=== PATIENT | male | born 1960 | race Caucasian/White ===

== ENCOUNTER 2018-09-27 16:20 | Inpatient (IN) | payer SELFPAY ==
[~2018-09-27] VITALS: Ht 185.4 cm; Wt 123.5 kg
[~2018-09-27 16:20] MED LIST: ACLI400A2 IH; FLUT1DIS5 IH; LOSA100T14 PO; METO-247 PO; SPIR50TA4 PO
[2018-09-27 17:08] VITALS: BP 133/73
[2018-09-27] MEDS: NICOTINE 21MG PATCH. TD SCH (17:30)
[2018-09-27] MEDS ORDERED: FUROSEMIDE 40 MG/4 ML VIAL. IVP ONE (17:30)
[2018-09-27] MEDS ORDERED: ALBUMIN HUMAN 25% 50 ML IV ONE (17:30)
[2018-09-27] MEDS ORDERED: METO-247 PO (18:42)
[2018-09-27] MEDS ORDERED: GABA300C18 PO (18:42)
[2018-09-27] MEDS ORDERED: PIPE3.377 IV (18:42)
[2018-09-27] MEDS ORDERED: FOLI1TAB16 PO (18:42)
[2018-09-27] MEDS ORDERED: METH40VI IJ (18:42)
[2018-09-27] MEDS ORDERED: METO2.5T PO (18:42)
[2018-09-27] MEDS ORDERED: ALBU2.5V14 NEB (18:42)
[2018-09-27] MEDS ORDERED: MULT1TAB52 PO (18:42)
[2018-09-27] MEDS ORDERED: LOSA25TA54 PO (18:42)
[2018-09-27] MEDS ORDERED: POTA20TA82 PO (18:42)
[2018-09-27] MEDS ORDERED: IPRA3AMP29 NEB (18:47)
[2018-09-27] MEDS ORDERED: BUDE0.5A NEB (18:47)
[2018-09-27 19:05] VITALS: BP 110/62
[2018-09-27] MEDS: BUDESONIDE 0.5 MG/2 ML NEBU. NEB SCH (20:06)
[2018-09-27] MEDS: ALBUTEROL SULFATE 2.5 MG/3 ML NEBU. NEB SCH (20:06)
[2018-09-27] MEDS ORDERED: NON FORMULARY ITEM (Fluticasone/Salmeterol (Advair 500-50 Diskus) 1 INH) IH SCH (21:00)
[2018-09-27] MEDS: GABAPENTIN 300 MG CAPSULE. PO SCH (21:30)
[2018-09-27] MEDS: POTASSIUM CHLORIDE 20 MEQ TABLET.ER. PO SCH (21:31)
[2018-09-27] MEDS: methylPREDNISolone SOD SUCC PF 40 MG/ML VIAL. IV SCH (21:31)
[2018-09-27] MEDS: VANCOMYCIN PER PHARMACY MC PRN ×2 (21:54→22:00)
[2018-09-27] MEDS ORDERED: PIPERACILLIN/TAZOBACTAM 3.375 GM in IV NORMAL SALINE 50ML 50 ML IV SCH (22:00)
[2018-09-27] MEDS ORDERED: [UNRECOGNIZED DRUG - OTHER] IV SCH (22:00)
[2018-09-27] MEDS ORDERED: PIPERACILLIN TAZO DEXTROSE ISO IV SCH (22:00)
[2018-09-27 23:10] VITALS: BP 129/79
[2018-09-28] VITALS (7 sets, daily range): BP systolic 114–130; BP diastolic 68–83
[2018-09-28] MEDS ORDERED: NON FORMULARY ITEM (Albuterol Sulfate (Albuterol Sulfate Conc Neb Soln) 1 VIAL) NEB SCH
[2018-09-28] MEDS: VANCOMYCIN 2 GM in IV NORMAL SALINE 500ML BAG 500 ML IV SCH ×2 (01:00→12:58)
[2018-09-28 05:27] LABS: BASO % 0 % (0-3); EOS % 0 % (0-3); HEMATOCRIT 61.8 % (39.0-53.0); HEMOGLOBIN 19.9 g/dL (13.0-17.5); LYMPH # 0.6 x10^3/uL (1.0-4.8); LYMPH % 6 % (24-48); MEAN CORPUSCULAR HEMOGLOBIN 29 pg (25-35); MEAN CORPUSCULAR HGB CONC 32 g/dL (31-37); MEAN CORPUSCULAR VOLUME 91 fL (79-100); MONO # 0.5 x10^3/uL (0.0-1.1); MONO % 5 % (0-9); NEUT # 9.1 x10^3uL (1.8-7.7); NEUT % 89 % (31-73); PLATELET COUNT 117 x10^3/uL (140-400); RED BLOOD COUNT 6.77 x10^6/uL (4.30-5.70); RED CELL DISTRIBUTION WIDTH 16.7 % (11.5-14.5); WHITE BLOOD COUNT 10.2 x10^3/uL (4.0-11.0)
[2018-09-28] MEDS: PIPERACILLIN/TAZOBACTAM 3.375 GM in IV NORMAL SALINE 50ML 50 ML IV SCH ×3 (05:49→17:20)
[2018-09-28 05:50] LABS: CALCIUM 9.3 mg/dL (8.5-10.1); CREATININE 1.1 mg/dL (0.7-1.3)
[2018-09-28] MEDS: ALBUTEROL SULFATE 2.5 MG/3 ML NEBU. NEB SCH ×5 (06:56→20:30)
[2018-09-28] MEDS: BUDESONIDE 0.5 MG/2 ML NEBU. NEB SCH ×2 (06:57→20:30)
[2018-09-28] MEDS ORDERED: METOPROLOL SUCC 24HR ER 100 MG TAB.ER.24H. PO SCH (09:00)
[2018-09-28] MEDS ORDERED: LOSARTAN POTASSIUM 50 MG TABLET. PO SCH (09:00)
[2018-09-28 09:01] LABS: % LYMPHS 3 % (24-48); % MONOS 5 % (0-10); % SEGS 92 % (35-66)
[2018-09-28 09:02] LABS: ANISOCYTOSIS SLIGHT; PLT ESTIMATE DECREASED (ADEQUATE)
--- NOTE | 2018-09-28 09:39 | HP ---
ADMIT DATE: 09/27/2018 HISTORY OF PRESENT ILLNESS: The patient is a 58-year-old male patient who was transferred from [facility] where he was originally admitted on 09/22/2018 with increasing pain and swelling of both lower extremities and weight gain. He stated that he gained about 60 pounds over the last year and about 7 pounds over the last week prior to admission. He also complained of shortness of breath, but denied any chest pain. Did complain of orthopnea, paroxysmal nocturnal dyspnea. Initial blood gases showed that he was in acute hypoxic hypercapnic respiratory failure. His pH was 7.31, pCO2 of 80, pO2 of 65, bicarbonate 41, oxygen saturation was 89%. He refused to go on BiPAP machine. We did start him on IV Lasix, and we added also human albumin and metolazone. On the night before the transfer to [facility], the patient desaturated with an oxygen saturation down to 82%. We did put him back on BiPAP machine. He initially came with abnormal kidney function that has actually improved with increase in the dose of Lasix. In fact, his creatinine was 1.6 on arrival to [facility] that has improved to 1.1 yesterday. He has worsening hypoxemia. We did a CT angiography of the chest, which showed no evidence of pulmonary emboli; however, he has bilateral lung infiltrate. He has finally agreed to be transferred to [facility]. We did transfer him to consult the Cardiology as well as the menu planner. He has severe secondary erythrocytosis, his hemoglobin and hematocrit almost 20 and 60. I wonder whether phlebotomy is something that needs to be considered in this patient. PAST MEDICAL HISTORY: Significant for hypertension, chronic obstructive pulmonary disease, morbid obesity, obstructive sleep apnea, for which he is on CPAP at home. PAST SURGICAL HISTORY: Significant for tonsillectomy, excision of melanoma from his left axillary area and arthroscopic knee surgery, both sides. ALLERGIES: He has no known drug allergies. MEDICATIONS: He was transferred to this facility to continue on following medications: Zosyn 3.375 grams IV q.8 hourly, ipratropium bromide, albuterol sulfate by nebulizer 4 times a day, albuterol sulfate by nebulizer every 6 hours, metoprolol succinate 100 mg once a day, losartan potassium 100 mg once a day, spironolactone 50 mg once a day, gabapentin 300 mg 3 times a day, potassium chloride 20 mEq 3 times a day, metolazone 2.5 mg daily. He is on Advair Diskus 500/50 one inhalation twice a day, methylprednisolone 40 mg IV q.12 hourly, folic acid 1 mg once a day, multivitamin 1 tablet once a day. Should also be on Lasix 40 mg IV 3 times a day, human albumin 12.5 mg IV 3 times a day and vancomycin as per pharmacy recommendation. He is also on nicotine patch 21 mg topically daily. FAMILY HISTORY: He has one brother younger and seemingly healthy. His father at the age of 48 because of cerebral aneurysm. Apparently has rheumatic fever, requiring valve replacement. His mother is still alive at age of 77 and survived colon cancer x 2. SOCIAL HISTORY: He is , has 1 son. He smokes 1 pack per day. He drinks some form of hard liquor daily and also drinks between 1-18 beers a day. 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 REVIEW OF SYSTEMS: The patient denied any blurring of vision, cataract, glaucoma or macular degeneration. Denied any earache, tinnitus or sensorineural deafness. Denied any nosebleeds, stuffy nose or postnasal drip. Denied any sore throat, sore tongue, toothache, hoarseness of voice or difficulty swallowing. Denied any nausea, vomiting, diarrhea or constipation. Denied any hematemesis, melena or hematochezia. Denied any dysuria, frequency or hematuria. Did complain of hematuria when he was in [facility] after we started him on Lovenox; however, we did a CT scan of the abdomen, did not show any renal stones or renal malignancy. He denied any chest pain. Did complain of shortness of breath, orthopnea, paroxysmal nocturnal dyspnea. PHYSICAL EXAMINATION: GENERAL: When I examined him this morning, he was actually resting slightly propped up in bed, in no apparent respiratory distress. He was plethoric, and there is no jaundice, cyanosis or thyromegaly. No jugular venous distention. His bilateral lower limb edema has much improved, although by no means completely resolved. VITAL SIGNS: His heart rate was 85, blood pressure 117/77, temperature was 97.9, respiratory rate was 20 and oxygen saturation was 89% on 4 liters of oxygen. HEAD, EYES, EARS, NOSE AND THROAT: Showed normocephalic, atraumatic. NECK: Supple. HEART: Showed normal first and second heart sounds. No gallop, rub or murmur. CHEST: Clear to auscultation. No crepitation or rhonchi. ABDOMEN: Distended, soft, nontender, with a periumbilical hernia that is easily reducible. There is no guarding or rigidity. No organomegaly. All hernial orifice intact. Bowel sounds normal. NEUROLOGIC: He was sleepy, but arousable. All cranial nerves intact. EXTREMITIES: He moves extremities without difficulty, ambulates without assistance or assistive devices. LABORATORY DATA: Showed a white cell count of 10,200, hemoglobin 19.9, hematocrit 61.8, MCV 91 and platelet count of 117,000. His chemistry showed a serum sodium 139, potassium 4, chloride 91, bicarbonate 44, anion gap of 4, BUN 29, creatinine 1.1, estimated GFR was 69 mL per minute, his glucose 117, calcium was 9.3. IMPRESSION: In summary 1. This is a 58-year-old male patient who was admitted originally to [facility] with azpsu-uf-bxddxog hypoxic hypercapnic respiratory failure. 2. Acute on chronic systolic and diastolic congestive heart failure. 3. Morbid obesity with obstructive sleep apnea. 4. Hypertension. 5. Thrombocytopenia. 6. Alcohol and tobacco abuse. PLAN: My plan is to continue with nebulized albuterol and Atrovent. Continue with IV Solu-Medrol. Continue with Lasix and human albumin as well as metolazone. I would consult the menu planner as well as the financial reporting director to assist and optimize his medical management. LARISA GROSS MD DR: ZAID/severo JOB#: [id number] / [id number]
[2018-09-28] MEDS: LOSARTAN POTASSIUM 25 MG TABLET. PO SCH (09:53)
[2018-09-28] MEDS: POTASSIUM CHLORIDE 20 MEQ TABLET.ER. PO SCH ×3 (09:53→17:19)
[2018-09-28] MEDS: METOPROLOL SUCC 24HR ER 100 MG TAB.ER.24H. PO SCH (09:53)
[2018-09-28] MEDS: GABAPENTIN 300 MG CAPSULE. PO SCH ×3 (09:53→21:29)
[2018-09-28] MEDS: MULTIVITAMIN with MINERAL TABLET. PO SCH (09:53)
[2018-09-28] MEDS: metOLazone 2.5 MG TABLET PO SCH (09:54)
[2018-09-28] MEDS: FOLIC ACID 1 MG TABLET. PO SCH (09:54)
[2018-09-28] MEDS: methylPREDNISolone SOD SUCC PF 40 MG/ML VIAL. IV SCH ×2 (09:54→21:29)
[2018-09-28] MEDS: SPIRONOLACTONE 25 MG TABLET PO SCH (09:54)
[2018-09-28] MEDS: ALBUMIN HUMAN 25% 50 ML IV SCH ×3 (09:55→21:29)
[2018-09-28] MEDS: NICOTINE 21MG PATCH. TD SCH (09:55)
[2018-09-28] MEDS: FUROSEMIDE 40 MG/4 ML VIAL. IVP SCH ×4 (09:55→22:51)
--- NOTE | 2018-09-28 11:05 | PDOC ---
JANELLE COHEN OPENING MACHINE CLEANER 09/28/18 1105: CARDIO Progress Notes Date and Time Date of Service 09/28/2018 Time of Evaluation 1040 Subjective Subjective: No Chest Pain, No Palpitations, Other (SOA better) Vitals Vitals Vital Signs Date Time Temp Pulse Resp B/P (MAP) Pulse Ox O2 Delivery O2 Flow Rate FiO2 09/28/18 09:53 85 117/77 09/28/18 07:40 Nasal Cannula 4.0 09/28/18 07:00 97.9 20 89 97.9 Weight Weight [ ] Input and Output Intake and Output Intake and Output 09/28/18 07:00 Intake Total 1150 ml Output Total 3300 ml Balance -2150 ml Intake Oral 550 ml IV Total 600 ml Output Urine Total 3300 ml Laboratory Labs Laboratory Tests Test 09/28/18 04:20 White Blood Count 10.2 x10^3/uL (4.0-11.0) Red Blood Count 6.77 x10^6/uL (4.30-5.70) Hemoglobin 19.9 g/dL (13.0-17.5) Hematocrit 61.8 % (39.0-53.0) Mean Corpuscular Volume 91 fL (79-100) Mean Corpuscular Hemoglobin 29 pg (25-35) Mean Corpuscular Hemoglobin Concent 32 g/dL (31-37) Red Cell Distribution Width 16.7 % (11.5-14.5) Platelet Count 117 x10^3/uL (140-400) Neutrophils (%) (Auto) 89 % (31-73) Lymphocytes (%) (Auto) 6 % (24-48) Monocytes (%) (Auto) 5 % (0-9) Eosinophils (%) (Auto) 0 % (0-3) Basophils (%) (Auto) 0 % (0-3) Neutrophils # (Auto) 9.1 x10^3uL (1.8-7.7) Lymphocytes # (Auto) 0.6 x10^3/uL (1.0-4.8) Monocytes # (Auto) 0.5 x10^3/uL (0.0-1.1) Eosinophils # (Auto) 0.0 x10^3/uL (0.0-0.7) Basophils # (Auto) 0.0 x10^3/uL (0.0-0.2) Segmented Neutrophils % 92 % (35-66) Lymphocytes % 3 % (24-48) Monocytes % 5 % (0-10) Platelet Estimate Decreased (ADEQUATE) Large Platelets Few Anisocytosis Slight Sodium Level 139 mmol/L (136-145) Potassium Level 4.0 mmol/L (3.5-5.1) Chloride Level 91 mmol/L (98-107) Carbon Dioxide Level 44 mmol/L (21-32) Anion Gap 4 (6-14) Blood Urea Nitrogen 29 mg/dL (8-26) Creatinine 1.1 mg/dL (0.7-1.3) Estimated GFR (Cockcroft-Gault) 69.0 Glucose Level 117 mg/dL (70-99) Calcium Level 9.3 mg/dL (8.5-10.1) Physical Exam HEENT: Neck Supple W Full Motion Chest: Symmetric LUNGS: Other (diminished with upper wheeze) Heart: S1S2, RRR (SR ) Abdomen: Soft N/T, Other (obese) Extremities: No Calf Tenderness, Other (3-4+ bilateral LE pitting edema) Neurology: alert, oriented, follow commands Assessment Assessment 1. Acute on chronic respiratory failure with associated with AECOPD and LORETO with possible pneumonia 2. Acute on chronic diastolic heart failure: due to above 2. Probable venous insufficiency 3. ETOH abuse with possible liver disease vs hepatic congestion: 4-5 beers and chased with hard liquor 4. tobaccoism 5. HTN: controlled 6. Morbid obesity - encourage weight reduction 7. Polycythemia/thrombocytopenia/mild coagulopathy/splenomegaly Recommendations 1. Came from [place] seen by cardiology over there. Consult Pulmonary 2. Bipap PRN 3. Continue with lasix therapy. 4. ETOH and smoking cessation. Lifestyle modification 5. Consider outpatient venous reflux study and compression hose, avoidance of sodium and elevate feet when possible 6. Continue current BP regimen. May hold metoprolol if wheezy. Supportive care. <Conclusion> TTE The Left Ventricle is borderline dilated. The left ventricular systolic function is normal and the ejection fraction is within normal range. The Ejection Fraction is 55-60%. There is mild concentric left ventricular hypertrophy. There is no significant aortic valvular stenosis. Doppler and Color Flow revealed no significant aortic regurgitation. Doppler and Color Flow revealed trace mitral valve regurgitation. Doppler and Color Flow revealed trace to mild tricuspid valve regurgitation. DATE: 09/25/18 1132 IMPRESSION: CTA 1. Negative for pulmonary embolism. 2. Lower lobe infiltrates or pneumonia bilaterally. DATE: 09/27/18 1056 PRITI PRADHAN MD 09/28/182: CARDIO Progress Notes Assessment Assessment Patient seen and examined. Agree with REAL ESTATE CONSULTANT's assessment and plan. Pulm team consulted for acute COPD exacerbation Continue diuresis for acute on chronic diastolic HF 2D echo showed normal LVF Edema/discoloration c/w venous insufficiency - plan outpatient venous reflux study Thank you for your consultation JANELLE COHEN APRN Sep 28, 2018 11:05 PRITI PRADHAN MD Sep 28, 2018 21:32
[2018-09-28] MEDS: VANCOMYCIN PER PHARMACY MC PRN (13:38)
--- NOTE | 2018-09-28 15:04 | PDOC ---
PULMONARY PROGRESS NOTES Vitals Vital Signs Date Time Temp Pulse Resp B/P (MAP) Pulse Ox O2 Delivery O2 Flow Rate FiO2 09/28/18 12:03 Nasal Cannula 4.0 09/28/18 11:00 98.2 84 20 124/70 (88) 88 98.2 Labs Laboratory Tests Test 09/28/18 04:20 White Blood Count 10.2 x10^3/uL (4.0-11.0) Red Blood Count 6.77 x10^6/uL (4.30-5.70) Hemoglobin 19.9 g/dL (13.0-17.5) Hematocrit 61.8 % (39.0-53.0) Mean Corpuscular Volume 91 fL (79-100) Mean Corpuscular Hemoglobin 29 pg (25-35) Mean Corpuscular Hemoglobin Concent 32 g/dL (31-37) Red Cell Distribution Width 16.7 % (11.5-14.5) Platelet Count 117 x10^3/uL (140-400) Neutrophils (%) (Auto) 89 % (31-73) Lymphocytes (%) (Auto) 6 % (24-48) Monocytes (%) (Auto) 5 % (0-9) Eosinophils (%) (Auto) 0 % (0-3) Basophils (%) (Auto) 0 % (0-3) Neutrophils # (Auto) 9.1 x10^3uL (1.8-7.7) Lymphocytes # (Auto) 0.6 x10^3/uL (1.0-4.8) Monocytes # (Auto) 0.5 x10^3/uL (0.0-1.1) Eosinophils # (Auto) 0.0 x10^3/uL (0.0-0.7) Basophils # (Auto) 0.0 x10^3/uL (0.0-0.2) Segmented Neutrophils % 92 % (35-66) Lymphocytes % 3 % (24-48) Monocytes % 5 % (0-10) Platelet Estimate Decreased (ADEQUATE) Large Platelets Few Anisocytosis Slight Sodium Level 139 mmol/L (136-145) Potassium Level 4.0 mmol/L (3.5-5.1) Chloride Level 91 mmol/L (98-107) Carbon Dioxide Level 44 mmol/L (21-32) Anion Gap 4 (6-14) Blood Urea Nitrogen 29 mg/dL (8-26) Creatinine 1.1 mg/dL (0.7-1.3) Estimated GFR (Cockcroft-Gault) 69.0 Glucose Level 117 mg/dL (70-99) Calcium Level 9.3 mg/dL (8.5-10.1) Laboratory Tests Test 09/28/18 04:20 White Blood Count 10.2 x10^3/uL (4.0-11.0) Red Blood Count 6.77 x10^6/uL (4.30-5.70) Hemoglobin 19.9 g/dL (13.0-17.5) Hematocrit 61.8 % (39.0-53.0) Mean Corpuscular Volume 91 fL (79-100) Mean Corpuscular Hemoglobin 29 pg (25-35) Mean Corpuscular Hemoglobin Concent 32 g/dL (31-37) Red Cell Distribution Width 16.7 % (11.5-14.5) Platelet Count 117 x10^3/uL (140-400) Neutrophils (%) (Auto) 89 % (31-73) Lymphocytes (%) (Auto) 6 % (24-48) Monocytes (%) (Auto) 5 % (0-9) Eosinophils (%) (Auto) 0 % (0-3) Basophils (%) (Auto) 0 % (0-3) Neutrophils # (Auto) 9.1 x10^3uL (1.8-7.7) Lymphocytes # (Auto) 0.6 x10^3/uL (1.0-4.8) Monocytes # (Auto) 0.5 x10^3/uL (0.0-1.1) Eosinophils # (Auto) 0.0 x10^3/uL (0.0-0.7) Basophils # (Auto) 0.0 x10^3/uL (0.0-0.2) Segmented Neutrophils % 92 % (35-66) Lymphocytes % 3 % (24-48) Monocytes % 5 % (0-10) Platelet Estimate Decreased (ADEQUATE) Large Platelets Few Anisocytosis Slight Sodium Level 139 mmol/L (136-145) Potassium Level 4.0 mmol/L (3.5-5.1) Chloride Level 91 mmol/L (98-107) Carbon Dioxide Level 44 mmol/L (21-32) Anion Gap 4 (6-14) Blood Urea Nitrogen 29 mg/dL (8-26) Creatinine 1.1 mg/dL (0.7-1.3) Estimated GFR (Cockcroft-Gault) 69.0 Glucose Level 117 mg/dL (70-99) Calcium Level 9.3 mg/dL (8.5-10.1) Medications Active Scripts Medications Dose Route/Sig Max Daily Dose Days Date Category Duoneb 0.5-3(2.5) Mg/3 Ml (Albuterol/Ipratropium) 3 Ml Ampul.neb 3 Ml NEB QID 09/27/18 Reported Budesonide 0.5 Mg/2 Ml Ampul.neb 1 Vial NEB BID 09/27/18 Reported Solu-Medrol 40 Mg Vial (Methylprednisolone Sod Succ/Pf) 40 Mg/1 Ml Vial 40 Mg IJ Q12HR 09/27/18 Reported Metolazone 2.5 Mg Tablet 2.5 Mg PO DAILY 09/27/18 Reported Potassium Chloride 20 Meq Tablet.er 20 Meq PO TID 09/27/18 Reported Zosyn 3.375 Gm Pre Mix-Bag (Stujxischmdk-Kdln-Giloxhsk,Iso) 3.375 Gm/50 Ml Froz.piggy 3.375 Gm IV Q8HRS 09/27/18 Reported Multivitamins (Multivitamin) 1 Each Tablet 1 Tab PO DAILY 09/27/18 Reported Metoprolol Succinate ( Xl ) (Metoprolol Succinate) 100 Mg Tab.er.24h 1 Tab PO DAILY 09/27/18 Reported Losartan Potassium (Losartan Potassium) 25 Mg Tablet 25 Mg PO DAILY 09/27/18 Reported Gabapentin (Gabapentin) 300 Mg Capsule 300 Mg PO TID 09/27/18 Reported Folic Acid 1 Mg Tablet 1 Tab PO DAILY 09/27/18 Reported Albuterol Sulfate Conc Neb Soln (Albuterol Sulfate) 2.5 Mg/0.5 Ml Vial.neb 1 Vial NEB Q6HRS 09/27/18 Reported Losartan Potassium 100 Mg Tablet 100 Mg PO DAILY 07/19/14 Reported Metoprolol Succinate ( Xl ) (Metoprolol Succinate) 100 Mg Tab.er.24h 100 Mg PO DAILY 07/19/14 Reported Spironolactone 50 Mg Tablet 50 Mg PO DAILY 07/19/14 Reported Tudorza Pressair (Aclidinium [place]) 400 Mcg Aer.pow.ba 400 Mcg IH 07/19/14 Reported Advair 500-50 Diskus (Fluticasone/Salmeterol) 1 Each Disk.w.dev 1 Inh IH BID 07/19/14 Reported Impression . FULL NOTE DICTATED THANKS ACUTE RESP FAILURE COPD LORETO PNEUMONIA SEE ORDERS DEO DUENAS MD Sep 28, 2018 15:04
--- NOTE | 2018-09-28 19:14 | CONS ---
DATE OF CONSULTATION: 09/28/2018 ATTENDING PHYSICIAN: Patrice Lazar MD REASON FOR CONSULTATION: The patient seen in Pulmonary consultation at the request of Dr. Lazar for acute hypercapnic respiratory failure, pH of 7.31, PaCO2 of 80, PaO2 of 65, bicarb of 41. HISTORY OF PRESENT ILLNESS: The patient is a 58-year-old that presented with increasing lower extremity edema, increasing shortness of breath. At [facility], initial arterial blood gas revealed a pH of 7.31, PaCO2 of 80, PaO2 of 65, bicarbonate of ____, saturations were 89%. Initially, the patient refused BiPAP. He was treated with IV Lasix. He was then transferred to [facility]. CT chest was obtained revealing no evidence of pulmonary embolism. There is bilateral lower infiltrates, consolidation compatible with possible pneumonia. The patient does smoke. He has underlying COPD, unknown FEV1. He does not experience acute exacerbations of COPD on a regular basis. PAST MEDICAL HISTORY: 1. Obstructive sleep apnea, uses CPAP at home, religiously. 2. COPD. 3. Morbid obesity. 4. Chronic lower extremity edema. PAST SURGICAL HISTORY: Tonsillectomy. He has had previous melanoma excised from the left axillary area. He has had arthroscopic knee surgery. ALLERGIES: No known drug allergies. MEDICATIONS: List from home was reviewed. SOCIAL HISTORY: He smokes. He is currently unemployed. He drinks on a regular basis. FAMILY HISTORY: Father with cerebral aneurysm, at the age of 48. REVIEW OF SYSTEMS: CONSTITUTIONAL: No fever or chills. EYES: No change in visual acuity. HENT: No nasal congestion or sore throat. PULMONARY: As indicated above. CARDIOVASCULAR: No chest pain or pressure. GASTROINTESTINAL: No nausea, vomiting, diarrhea. GENITOURINARY: No dysuria or frequency. MUSCULOSKELETAL: No localized muscle aches or joint pains. SKIN: No new skin rashes. NEUROLOGIC: No headaches, diplopia or blurred vision. PHYSICAL EXAMINATION: GENERAL: Morbid obese individual, body mass index of 39. VITAL SIGNS: Currently on 4 liters of oxygen supplementation, saturation greater than 92%. HEENT: Eyes, the sclerae were nonicteric. NECK: Jugular venous distention was not elevated and no lymphadenopathy. CHEST: Full expansion. LUNGS: Poor airway flow with no wheezes. CARDIOVASCULAR: Regular rate and rhythm with S1, S2, no S3. ABDOMEN: Soft, nontender, nondistended. EXTREMITIES: No clubbing, cyanosis or edema. NEUROLOGIC: The patient was awake, alert, following commands. A detailed neuro exam was not performed. IMAGING: A CT angiogram as indicated above. LABORATORY DATA: White count was normal, hemoglobin and hematocrit were noted. Electrolytes were noted. BUN and creatinine were noted. IMPRESSION: 1. Acute hypercapnic hypoxemic respiratory failure. 2. Obstructive sleep apnea. 3. Jnorr-rb-hnyxwak diastolic heart failure. 4. Suspect secondary pulmonary hypertension. 5. Alcohol abuse. 6. Tobacco dependence. 7. Hypertension. 8. Morbid obesity. 9. Polycythemia. 10. Possible pneumonia. 11. Acute exacerbation of chronic obstructive pulmonary disease. PLAN: 1. Continue diuresis. 2. CT angiogram revealed bilateral lower infiltrates. We will treat for pneumonia. 3. The patient instructed on the importance of discontinuing tobacco and alcohol. 4. We will initiate BiPAP. 5. I suspect the patient may do better with BiPAP at home. 6. A 6-minute walk prior to discharge. Dr. Lazar, I do appreciate the privilege in sharing in the patient's care. DEO DUENAS MD DR: DIXIE/severo JOB#: [id number] / [id number]
[2018-09-28] MEDS ORDERED: CYCLOBENZAPRINE 10 MG TABLET. PO PRN (20:45)
[2018-09-28] MEDS: LACTOBACILLUS RHAMNOSUS GG 1 CAPSULE. PO SCH (21:29)
[2018-09-29 01:41] LABS: CREATININE 1.4 mg/dL (0.7-1.3); GFR 52.2
[2018-09-29 01:47] LABS: VANC TR 19.5 mcg/mL (10.0-20.0)
[2018-09-29] MEDS: VANCOMYCIN 2 GM in IV NORMAL SALINE 500ML BAG 500 ML IV SCH (02:08)
[2018-09-29 02:59] VITALS: BP 146/80
[2018-09-29] MEDS: VANCOMYCIN PER PHARMACY MC PRN (04:38)
[2018-09-29 05:47] LABS: BASE EXCESS ABG 18 mmol/L (-3-3); HCO3 ABG 49 mmol/L (21-28); PO2 ABG 70 mmHg (75-108); SAT O2 ABG 94 % (92-99)
[2018-09-29 05:58] LABS: FIO2 ABG 40; PCO2 ABG 79 mmHg (35-46)
[2018-09-29] MEDS: PIPERACILLIN/TAZOBACTAM 3.375 GM in IV NORMAL SALINE 50ML 50 ML IV SCH ×6 (06:26→23:40)
[2018-09-29 07:15] VITALS: BP 118/77
[2018-09-29] MEDS: ALBUTEROL SULFATE 2.5 MG/3 ML NEBU. NEB SCH ×4 (08:03→20:51)
[2018-09-29] MEDS: BUDESONIDE 0.5 MG/2 ML NEBU. NEB SCH ×2 (08:03→20:50)
[2018-09-29] MEDS: metOLazone 2.5 MG TABLET PO SCH (08:31)
[2018-09-29] MEDS: LOSARTAN POTASSIUM 25 MG TABLET. PO SCH (08:31)
[2018-09-29] MEDS: POTASSIUM CHLORIDE 20 MEQ TABLET.ER. PO SCH ×3 (08:31→17:07)
[2018-09-29] MEDS: FOLIC ACID 1 MG TABLET. PO SCH (08:31)
[2018-09-29] MEDS: LACTOBACILLUS RHAMNOSUS GG 1 CAPSULE. PO SCH ×2 (08:31→20:54)
[2018-09-29] MEDS: GABAPENTIN 300 MG CAPSULE. PO SCH ×3 (08:32→20:54)
[2018-09-29] MEDS: METOPROLOL SUCC 24HR ER 100 MG TAB.ER.24H. PO SCH (08:32)
[2018-09-29] MEDS: SPIRONOLACTONE 25 MG TABLET PO SCH (08:32)
[2018-09-29] MEDS: methylPREDNISolone SOD SUCC PF 40 MG/ML VIAL. IV SCH ×2 (08:32→20:55)
[2018-09-29] MEDS: MULTIVITAMIN with MINERAL TABLET. PO SCH (08:32)
[2018-09-29] MEDS: FUROSEMIDE 40 MG/4 ML VIAL. IVP SCH ×3 (08:33→18:33)
[2018-09-29] MEDS: ALBUMIN HUMAN 25% 50 ML IV SCH ×2 (08:33→17:02)
[2018-09-29] MEDS: NICOTINE 21MG PATCH. TD SCH (08:33)
--- NOTE | 2018-09-29 08:56 | PDOC ---
PULMONARY PROGRESS NOTES Subjective PT NOT MORE SOA FEEL BETTER WORE BIPAP Vitals Vital Signs Date Time Temp Pulse Resp B/P (MAP) Pulse Ox O2 Delivery O2 Flow Rate FiO2 09/29/18 08:32 80 118/77 09/29/18 08:09 92 Nasal Cannula 4.0 09/29/18 07:15 97.9 24 97.9 ROS: No Nausea, No Chest Pain, No Abdominal Pain General: Alert Lungs: Crackles Cardiovascular: S1, S2 Abdomen: Soft, Other (OBESE) Neuro Exam: Alert Extremities: Other (EDEMA) Skin: Warm Labs Laboratory Tests Test 09/28/18 04:20 09/29/18 00:50 09/29/18 05:43 White Blood Count 10.2 x10^3/uL (4.0-11.0) Red Blood Count 6.77 x10^6/uL (4.30-5.70) Hemoglobin 19.9 g/dL (13.0-17.5) Hematocrit 61.8 % (39.0-53.0) Mean Corpuscular Volume 91 fL (79-100) Mean Corpuscular Hemoglobin 29 pg (25-35) Mean Corpuscular Hemoglobin Concent 32 g/dL (31-37) Red Cell Distribution Width 16.7 % (11.5-14.5) Platelet Count 117 x10^3/uL (140-400) Neutrophils (%) (Auto) 89 % (31-73) Lymphocytes (%) (Auto) 6 % (24-48) Monocytes (%) (Auto) 5 % (0-9) Eosinophils (%) (Auto) 0 % (0-3) Basophils (%) (Auto) 0 % (0-3) Neutrophils # (Auto) 9.1 x10^3uL (1.8-7.7) Lymphocytes # (Auto) 0.6 x10^3/uL (1.0-4.8) Monocytes # (Auto) 0.5 x10^3/uL (0.0-1.1) Eosinophils # (Auto) 0.0 x10^3/uL (0.0-0.7) Basophils # (Auto) 0.0 x10^3/uL (0.0-0.2) Segmented Neutrophils % 92 % (35-66) Lymphocytes % 3 % (24-48) Monocytes % 5 % (0-10) Platelet Estimate Decreased (ADEQUATE) Large Platelets Few Anisocytosis Slight Sodium Level 139 mmol/L (136-145) Potassium Level 4.0 mmol/L (3.5-5.1) Chloride Level 91 mmol/L (98-107) Carbon Dioxide Level 44 mmol/L (21-32) Anion Gap 4 (6-14) Blood Urea Nitrogen 29 mg/dL (8-26) Creatinine 1.1 mg/dL (0.7-1.3) 1.4 mg/dL (0.7-1.3) Estimated GFR (Cockcroft-Gault) 69.0 52.2 Glucose Level 117 mg/dL (70-99) Calcium Level 9.3 mg/dL (8.5-10.1) Vancomycin Level Trough 19.5 mcg/mL (10.0-20.0) Vancomycin Last Dose Date Vancomycin Last Dose Time O2 Saturation 94 % (92-99) Arterial Blood pH 7.41 (7.35-7.45) Arterial Blood pCO2 at Patient Temp 79 mmHg (35-46) Arterial Blood pO2 at Patient Temp 70 mmHg (75-108) Arterial Blood HCO3 49 mmol/L (21-28) Arterial Blood Base Excess 18 mmol/L (-3-3) FiO2 40 Laboratory Tests Test 09/29/18 00:50 09/29/18 05:43 Creatinine 1.4 mg/dL (0.7-1.3) Estimated GFR (Cockcroft-Gault) 52.2 Vancomycin Level Trough 19.5 mcg/mL (10.0-20.0) Vancomycin Last Dose Date Vancomycin Last Dose Time O2 Saturation 94 % (92-99) Arterial Blood pH 7.41 (7.35-7.45) Arterial Blood pCO2 at Patient Temp 79 mmHg (35-46) Arterial Blood pO2 at Patient Temp 70 mmHg (75-108) Arterial Blood HCO3 49 mmol/L (21-28) Arterial Blood Base Excess 18 mmol/L (-3-3) FiO2 40 Medications Active Scripts Medications Dose Route/Sig Max Daily Dose Days Date Category Duoneb 0.5-3(2.5) Mg/3 Ml (Albuterol/Ipratropium) 3 Ml Ampul.neb 3 Ml NEB QID 09/27/18 Reported Budesonide 0.5 Mg/2 Ml Ampul.neb 1 Vial NEB BID 09/27/18 Reported Solu-Medrol 40 Mg Vial (Methylprednisolone Sod Succ/Pf) 40 Mg/1 Ml Vial 40 Mg IJ Q12HR 09/27/18 Reported Metolazone 2.5 Mg Tablet 2.5 Mg PO DAILY 09/27/18 Reported Potassium Chloride 20 Meq Tablet.er 20 Meq PO TID 09/27/18 Reported Zosyn 3.375 Gm Pre Mix-Bag (Kbmdbnzcptzn-Peac-Nsqwcqpa,Iso) 3.375 Gm/50 Ml Froz.piggy 3.375 Gm IV Q8HRS 09/27/18 Reported Multivitamins (Multivitamin) 1 Each Tablet 1 Tab PO DAILY 09/27/18 Reported Metoprolol Succinate ( Xl ) (Metoprolol Succinate) 100 Mg Tab.er.24h 1 Tab PO DAILY 09/27/18 Reported Losartan Potassium (Losartan Potassium) 25 Mg Tablet 25 Mg PO DAILY 09/27/18 Reported Gabapentin (Gabapentin) 300 Mg Capsule 300 Mg PO TID 09/27/18 Reported Folic Acid 1 Mg Tablet 1 Tab PO DAILY 09/27/18 Reported Albuterol Sulfate Conc Neb Soln (Albuterol Sulfate) 2.5 Mg/0.5 Ml Vial.neb 1 Vial NEB Q6HRS 09/27/18 Reported Losartan Potassium 100 Mg Tablet 100 Mg PO DAILY 07/19/14 Reported Metoprolol Succinate ( Xl ) (Metoprolol Succinate) 100 Mg Tab.er.24h 100 Mg PO DAILY 07/19/14 Reported Spironolactone 50 Mg Tablet 50 Mg PO DAILY 07/19/14 Reported Tudorza Pressair (Aclidinium [place]) 400 Mcg Aer.pow.ba 400 Mcg IH 07/19/14 Reported Advair 500-50 Diskus (Fluticasone/Salmeterol) 1 Each Disk.w.dev 1 Inh IH BID 07/19/14 Reported Impression . IMPRESSION: 1. Acute hypercapnic hypoxemic respiratory failure. 2. Obstructive sleep apnea. 3. Mlbwq-fj-kaxkmqc diastolic heart failure. 4. Suspect secondary pulmonary hypertension. 5. Alcohol abuse. 6. Tobacco dependence. 7. Hypertension. 8. Morbid obesity. 9. Polycythemia. 10. Possible pneumonia. 11. Acute exacerbation of chronic obstructive pulmonary disease. Plan . D/W DR GROSS PT BETTER CONTINUE BIPAP WILL NEED A REPEAT SLEEP STUDY 6 MD W PRIOR TO D/C SISILLO,SABATO MD Sep 29, 2018 08:56
[2018-09-29 10:47] VITALS: BP 115/72
--- NOTE | 2018-09-29 11:07 | PN ---
DATE: 09/29/2018 SUBJECTIVE: The patient is resting slightly propped up in bed, in no apparent respiratory distress. He is awake, alert, continues to struggle with the BiPAP machine, but generally is doing much better. His swelling has largely subsided. He has lost about 37 pounds over the last 6 days. OBJECTIVE: GENERAL: When I saw him today, he looked well and was clearly in no apparent respiratory distress. He was if anything plethoric. No jaundice or cyanosis. No lymphadenopathy, no thyromegaly. No jugular venous distention. Mild bilateral lower limb edema. VITAL SIGNS: His heart rate was 80, blood pressure was 118/77, temperature was 97.9, respiratory rate was 24, and oxygen saturation was 92% on 4 liters of oxygen by nasal cannula. HEAD, EYES, EARS, NOSE AND THROAT: Showed he is normocephalic, atraumatic. NECK: Supple. HEART: Showed normal first and second sounds. No gallop, rub or murmur. CHEST: Clear to auscultation. No crepitation or rhonchi. ABDOMEN: Distended, soft, nontender. No guarding or rigidity. No organomegaly. All hernial orifice intact. Bowel sounds normal. NEUROLOGIC: He was definitely more awake, alert, responding appropriately. All cranial nerves intact. He moves extremities without difficulty. He ambulates without assistance or assistive devices. His intake over the last 24 hours was 1150, output was 5300. LABORATORY DATA: This morning showed his vancomycin trough level was 19.5. His serum creatinine was 1.4, estimated GFR was 52.2 His white cell count was 10,000, hemoglobin 20, hematocrit 61, MCV 91, and platelet count of 117,000. ASSESSMENT: 1. Oggcu-ns-ceskoao hypoxic hypercapnic respiratory failure. 2. Tszbz-mc-qtoaquu systolic and diastolic congestive heart failure. 3. Morbid obesity, obstructive sleep apnea. 4. Hypertension. 5. Thrombocytopenia. 6. Alcohol and tobacco abuse. 7. Community-acquired pneumonia. PLAN: My plan is to continue with nebulized albuterol and Atrovent. Continue with IV Solu-Medrol. Continue with Lasix and human albumin, although I will cut on that as his creatinine started to rise. I will also consult the Infectious Disease to assist with antibiotic management and if he remains stable over the next 2 days, hopefully discharge him before [place]. LARISA GROSS MD DR: ZAID/severo JOB#: [id number] / [id number]
--- NOTE | 2018-09-29 11:48 | PDOC ---
Infectious Disease Note Vital Sign Vital Signs Vital Signs Date Time Temp Pulse Resp B/P (MAP) Pulse Ox O2 Delivery O2 Flow Rate FiO2 09/29/18 11:25 Nasal Cannula 4.0 09/29/18 10:47 98.0 92 20 115/72 (86) 88 98.0 Labs Lab Laboratory Tests Test 09/29/18 00:50 09/29/18 05:43 Creatinine 1.4 mg/dL (0.7-1.3) Estimated GFR (Cockcroft-Gault) 52.2 Vancomycin Level Trough 19.5 mcg/mL (10.0-20.0) Vancomycin Last Dose Date Vancomycin Last Dose Time O2 Saturation 94 % (92-99) Arterial Blood pH 7.41 (7.35-7.45) Arterial Blood pCO2 at Patient Temp 79 mmHg (35-46) Arterial Blood pO2 at Patient Temp 70 mmHg (75-108) Arterial Blood HCO3 49 mmol/L (21-28) Arterial Blood Base Excess 18 mmol/L (-3-3) FiO2 40 Objective Assessment Pneumonia Left leg cellulitis COPD CHF Plan Plan of Care d/c vanc cont zosyn leg elevation supportive care LENO SOUZA MD Sep 29, 2018 11:48
--- NOTE | 2018-09-29 12:32 | CONS ---
DATE OF CONSULTATION: 09/29/2018 REQUESTING PHYSICIAN: Dr. Lazar. REASON FOR CONSULTATION: Antibiotic management for pneumonia and cellulitis. HISTORY OF PRESENT ILLNESS: This is a 58-year-old gentleman who was transferred from [facility]. The patient presented there with hypercarbic respiratory failure. Actually, his presentation there was bilateral lower extremity edema, redness of the left leg and difficulty breathing. The patient was diagnosed with respiratory failure, congestive heart failure, left lower extremity cellulitis. The patient was put on vancomycin and Zosyn and then transferred here for further management. The patient is feeling better. After diuresis, the leg swelling has improved, although the creatinine has creeped up. The patient denies any cough, denies any shortness of breath. Denies any fever, chills, nausea, vomiting, diarrhea, abdominal pain, urinary symptoms or bowel symptoms. PAST MEDICAL HISTORY: Positive for congestive heart failure, obstructive sleep apnea, COPD, obesity. SOCIAL HISTORY: Negative for alcohol use or drug use. He did smoke until he came to the hospital. ALLERGIES: No known drug allergies. CURRENT MEDICATIONS: The patient is on vancomycin and Zosyn. REVIEW OF SYSTEMS: As per HPI, all other systems reviewed and are negative. PHYSICAL EXAMINATION: GENERAL: Alert and oriented gentleman, not in any distress. VITAL SIGNS: Stable. Afebrile. HEENT: NAD. NECK: Supple, no JVP, no lymphadenopathy. LUNGS: Clear. HEART: S1, S2 regular. ABDOMEN: Benign. EXTREMITIES: Left lower extremity is red. Both extremities, the swelling has improved, now with wrinkles in the skin, very dry flaky skin. The patient is neurologically intact. LABORATORY DATA: White count is normal. BUN and creatinine has gone up from 1.1 to 1.4. Vancomycin trough was 19.[address] at [place] showed bilateral pulmonary infiltrate or consolidation. IMPRESSION: 1. Community-acquired pneumonia. 2. Left leg cellulitis. 3. Congestive heart failure. 4. Acute kidney injury. 5. Chronic obstructive pulmonary disease. RECOMMENDATION: We would discontinue vancomycin, continue Zosyn. Leg elevation, supportive care and we will follow the cultures and continue to follow. Thank you very much, Dr. Lazar, for giving me the opportunity to participate in this patient's care. LENO SOUZA MD DR: CHEVY/severo JOB#: [id number] / [id number]
[2018-09-29 14:28] VITALS: BP 119/60
[2018-09-29 19:00] VITALS: BP 101/57
[2018-09-29] MEDS ORDERED: VANCOMYCIN 2 GM in IV NORMAL SALINE 500ML BAG 500 ML IV SCH (20:00)
[2018-09-29] MEDS ORDERED: ALBUMIN HUMAN 25% 50 ML IV SCH (21:00)
[2018-09-29 23:00] VITALS: BP 108/65
[2018-09-30 03:00] VITALS: BP 98/67
[2018-09-30] MEDS: PIPERACILLIN/TAZOBACTAM 3.375 GM in IV NORMAL SALINE 50ML 50 ML IV SCH ×4 (06:08→23:48)
[2018-09-30 07:00] VITALS: BP 120/73
[2018-09-30] MEDS: BUDESONIDE 0.5 MG/2 ML NEBU. NEB SCH ×2 (07:39→19:47)
[2018-09-30] MEDS: ALBUTEROL SULFATE 2.5 MG/3 ML NEBU. NEB SCH ×4 (07:39→19:47)
[2018-09-30] MEDS: MULTIVITAMIN with MINERAL TABLET. PO SCH (09:20)
[2018-09-30] MEDS: FUROSEMIDE 40 MG/4 ML VIAL. IVP SCH ×2 (09:20→16:48)
[2018-09-30] MEDS: SPIRONOLACTONE 25 MG TABLET PO SCH (09:20)
[2018-09-30] MEDS: methylPREDNISolone SOD SUCC PF 40 MG/ML VIAL. IV SCH (09:20)
[2018-09-30] MEDS: LACTOBACILLUS RHAMNOSUS GG 1 CAPSULE. PO SCH ×2 (09:20→20:46)
[2018-09-30] MEDS: GABAPENTIN 300 MG CAPSULE. PO SCH ×3 (09:21→20:46)
[2018-09-30] MEDS: METOPROLOL SUCC 24HR ER 100 MG TAB.ER.24H. PO SCH (09:21)
[2018-09-30] MEDS: POTASSIUM CHLORIDE 20 MEQ TABLET.ER. PO SCH ×3 (09:21→16:48)
[2018-09-30] MEDS: FOLIC ACID 1 MG TABLET. PO SCH (09:21)
[2018-09-30] MEDS: LOSARTAN POTASSIUM 25 MG TABLET. PO SCH (09:22)
[2018-09-30] MEDS: ALBUMIN HUMAN 25% 50 ML IV SCH ×2 (09:22→16:49)
[2018-09-30] MEDS: NICOTINE 21MG PATCH. TD SCH (09:22)
[2018-09-30] MEDS: metOLazone 2.5 MG TABLET PO SCH (09:22)
[2018-09-30 09:48] LABS: HEMATOCRIT 63.5 % (39.0-53.0); HEMOGLOBIN 20.4 g/dL (13.0-17.5); RED BLOOD COUNT 7.03 x10^6/uL (4.30-5.70); RED CELL DISTRIBUTION WIDTH 16.8 % (11.5-14.5); WHITE BLOOD COUNT 11.2 x10^3/uL (4.0-11.0)
[2018-09-30 10:06] LABS: CALCIUM 9.7 mg/dL (8.5-10.1); CREATININE 1.3 mg/dL (0.7-1.3); GFR 56.9; MAGNESIUM 2.1 mg/dL (1.8-2.4); POTASSIUM 3.2 mmol/L (3.5-5.1)
--- NOTE | 2018-09-30 10:13 | PN ---
DATE: 09/30/2018 SUBJECTIVE: The patient is resting slightly propped up in bed, sleeping comfortably, in no apparent distress. On questioning him, he denied any complaint except some tingling in his feet. Nursing staff did not voice any concerns that he has an uneventful night. PHYSICAL EXAMINATION: GENERAL: When I examined him, he looked well and was clearly in no apparent respiratory distress. No pallor, jaundice, cyanosis or thyromegaly. No jugular venous distension. His lower limb edema has largely subsided. In fact, his weight came down from 317, down to 272 pounds. HEAD, EYES, EARS, NOSE AND THROAT: Showed normocephalic, atraumatic. NECK: Supple. HEART: Showed normal first and second heart sounds. No gallop, rub or murmur. CHEST: Clear to auscultation. No crepitation or rhonchi. ABDOMEN: Distended, soft, nontender. No guarding or rigidity. No organomegaly. All hernial orifices intact. Bowel sounds normal. NEUROLOGIC: He is awake, alert, responding appropriately. All cranial nerves intact. He moves extremities without difficulty. He ambulates without assistance or assistive devices. His intake was 1240, output was 5200. LABORATORY DATA: Today's labs are still pending at the time of this dictation. As of yesterday, his creatinine has risen to 1.4. Estimated GFR was 52 mL per minute. ASSESSMENT: 1. Acute on chronic hypoxic-hypercapnic respiratory failure. 2. Acute on chronic systolic and diastolic congestive heart failure. 3. Morbid obesity, obstructive sleep apnea. 4. Hypertension. 5. Thrombocytopenia. 6. Alcohol and tobacco abuse. 7. Community-acquired pneumonia. 8. Left lower extremity cellulitis. PLAN: To continue with IV Zosyn. We will arrange for him to have an overnight pulse oximeter to qualify him for BiPAP and hopefully discharge him home tomorrow. I will also would cut down his Solu-Medrol to once a day and switch him tomorrow to oral prednisone. LARISA GROSS MD DR: ZAID/severo JOB#: [id number] / [id number]
[2018-09-30 11:00] VITALS: BP 112/71
--- NOTE | 2018-09-30 13:26 | PDOC ---
Infectious Disease Note Subjective Subjective Feeling pretty good Says legs looking a lot better, swelling going down and less red Denies F/C/S/N/V/D/SOA ROS ROS per HPI Vital Sign Vital Signs Vital Signs Date Time Temp Pulse Resp B/P (MAP) Pulse Ox O2 Delivery O2 Flow Rate FiO2 09/30/18 12:26 89 Nasal Cannula 3.0 09/30/18 11:00 98.0 90 112/71 (85) 98.0 09/29/18 10:47 20 Physical Exam PHYSICAL EXAM GENERAL: Propped up in bed, alert, watching TV HEENT: Oral cavity clear NECK: Supple LUNGS: Diminished aeration, soft wheeze. 3L O2 HEART: S1, S2 ABDOMEN: Soft and nontender EXTREMITIES: Edema BLE L > R, + wrinkles. Less red SKIN: No rash CAREER SERVICES COORDINATOR: Alert, responds appropriately PIV ok Labs Lab Laboratory Tests Test 09/30/18 09:05 White Blood Count 11.2 x10^3/uL (4.0-11.0) Red Blood Count 7.03 x10^6/uL (4.30-5.70) Hemoglobin 20.4 g/dL (13.0-17.5) Hematocrit 63.5 % (39.0-53.0) Mean Corpuscular Volume 90 fL (79-100) Mean Corpuscular Hemoglobin 29 pg (25-35) Mean Corpuscular Hemoglobin Concent 32 g/dL (31-37) Red Cell Distribution Width 16.8 % (11.5-14.5) Platelet Count 125 x10^3/uL (140-400) Sodium Level 136 mmol/L (136-145) Potassium Level 3.2 mmol/L (3.5-5.1) Chloride Level 91 mmol/L (98-107) Carbon Dioxide Level 41 mmol/L (21-32) Anion Gap 4 (6-14) Blood Urea Nitrogen 38 mg/dL (8-26) Creatinine 1.3 mg/dL (0.7-1.3) Estimated GFR (Cockcroft-Gault) 56.9 Glucose Level 140 mg/dL (70-99) Calcium Level 9.7 mg/dL (8.5-10.1) Magnesium Level 2.1 mg/dL (1.8-2.4) Objective Assessment Pneumonia Left leg cellulitis - improving COPD, on prednisone CHF Plan Plan of Care cont zosyn Off vanc Probiotics f/u am labs Leg elevation supportive care Patient seen and examined. Chart reviewed in detail. Case discussed with SCRAPER OPERATOR. Agree with above plan LAUREL NUNEZ APRN Sep 30, 2018 13:26 LILIAM MALIK MD Sep 30, 2018 20:12
--- NOTE | 2018-09-30 13:32 | PDOC ---
PULMONARY PROGRESS NOTES Subjective FEELS BETTER LESS SOA Vitals Vital Signs Date Time Temp Pulse Resp B/P (MAP) Pulse Ox O2 Delivery O2 Flow Rate FiO2 09/30/18 12:26 89 Nasal Cannula 3.0 09/30/18 11:00 98.0 90 112/71 (85) 98.0 09/29/18 10:47 20 ROS: No Nausea, No Chest Pain, No Abdominal Pain General: Alert Lungs: Crackles Cardiovascular: S1, S2 Abdomen: Soft, Other (OBESE) Neuro Exam: Alert Extremities: Other (EDEMA) Skin: Warm Labs Laboratory Tests Test 09/29/18 00:50 09/29/18 05:43 09/30/18 09:05 Creatinine 1.4 mg/dL (0.7-1.3) 1.3 mg/dL (0.7-1.3) Estimated GFR (Cockcroft-Gault) 52.2 56.9 Vancomycin Level Trough 19.5 mcg/mL (10.0-20.0) Vancomycin Last Dose Date Vancomycin Last Dose Time O2 Saturation 94 % (92-99) Arterial Blood pH 7.41 (7.35-7.45) Arterial Blood pCO2 at Patient Temp 79 mmHg (35-46) Arterial Blood pO2 at Patient Temp 70 mmHg (75-108) Arterial Blood HCO3 49 mmol/L (21-28) Arterial Blood Base Excess 18 mmol/L (-3-3) FiO2 40 White Blood Count 11.2 x10^3/uL (4.0-11.0) Red Blood Count 7.03 x10^6/uL (4.30-5.70) Hemoglobin 20.4 g/dL (13.0-17.5) Hematocrit 63.5 % (39.0-53.0) Mean Corpuscular Volume 90 fL (79-100) Mean Corpuscular Hemoglobin 29 pg (25-35) Mean Corpuscular Hemoglobin Concent 32 g/dL (31-37) Red Cell Distribution Width 16.8 % (11.5-14.5) Platelet Count 125 x10^3/uL (140-400) Sodium Level 136 mmol/L (136-145) Potassium Level 3.2 mmol/L (3.5-5.1) Chloride Level 91 mmol/L (98-107) Carbon Dioxide Level 41 mmol/L (21-32) Anion Gap 4 (6-14) Blood Urea Nitrogen 38 mg/dL (8-26) Glucose Level 140 mg/dL (70-99) Calcium Level 9.7 mg/dL (8.5-10.1) Magnesium Level 2.1 mg/dL (1.8-2.4) Laboratory Tests Test 09/30/18 09:05 White Blood Count 11.2 x10^3/uL (4.0-11.0) Red Blood Count 7.03 x10^6/uL (4.30-5.70) Hemoglobin 20.4 g/dL (13.0-17.5) Hematocrit 63.5 % (39.0-53.0) Mean Corpuscular Volume 90 fL (79-100) Mean Corpuscular Hemoglobin 29 pg (25-35) Mean Corpuscular Hemoglobin Concent 32 g/dL (31-37) Red Cell Distribution Width 16.8 % (11.5-14.5) Platelet Count 125 x10^3/uL (140-400) Sodium Level 136 mmol/L (136-145) Potassium Level 3.2 mmol/L (3.5-5.1) Chloride Level 91 mmol/L (98-107) Carbon Dioxide Level 41 mmol/L (21-32) Anion Gap 4 (6-14) Blood Urea Nitrogen 38 mg/dL (8-26) Creatinine 1.3 mg/dL (0.7-1.3) Estimated GFR (Cockcroft-Gault) 56.9 Glucose Level 140 mg/dL (70-99) Calcium Level 9.7 mg/dL (8.5-10.1) Magnesium Level 2.1 mg/dL (1.8-2.4) Medications Active Scripts Medications Dose Route/Sig Max Daily Dose Days Date Category Duoneb 0.5-3(2.5) Mg/3 Ml (Albuterol/Ipratropium) 3 Ml Ampul.neb 3 Ml NEB QID 09/27/18 Reported Budesonide 0.5 Mg/2 Ml Ampul.neb 1 Vial NEB BID 09/27/18 Reported Solu-Medrol 40 Mg Vial (Methylprednisolone Sod Succ/Pf) 40 Mg/1 Ml Vial 40 Mg IJ Q12HR 09/27/18 Reported Metolazone 2.5 Mg Tablet 2.5 Mg PO DAILY 09/27/18 Reported Potassium Chloride 20 Meq Tablet.er 20 Meq PO TID 09/27/18 Reported Zosyn 3.375 Gm Pre Mix-Bag (Homxbfjbafjl-Pvpv-Pytcdqyg,Iso) 3.375 Gm/50 Ml Froz.piggy 3.375 Gm IV Q8HRS 09/27/18 Reported Multivitamins (Multivitamin) 1 Each Tablet 1 Tab PO DAILY 09/27/18 Reported Metoprolol Succinate ( Xl ) (Metoprolol Succinate) 100 Mg Tab.er.24h 1 Tab PO DAILY 09/27/18 Reported Losartan Potassium (Losartan Potassium) 25 Mg Tablet 25 Mg PO DAILY 09/27/18 Reported Gabapentin (Gabapentin) 300 Mg Capsule 300 Mg PO TID 09/27/18 Reported Folic Acid 1 Mg Tablet 1 Tab PO DAILY 09/27/18 Reported Albuterol Sulfate Conc Neb Soln (Albuterol Sulfate) 2.5 Mg/0.5 Ml Vial.neb 1 Vial NEB Q6HRS 09/27/18 Reported Losartan Potassium 100 Mg Tablet 100 Mg PO DAILY 07/19/14 Reported Metoprolol Succinate ( Xl ) (Metoprolol Succinate) 100 Mg Tab.er.24h 100 Mg PO DAILY 07/19/14 Reported Spironolactone 50 Mg Tablet 50 Mg PO DAILY 07/19/14 Reported Tudorza Pressair (Aclidinium [place]) 400 Mcg Aer.pow.ba 400 Mcg IH 07/19/14 Reported Advair 500-50 Diskus (Fluticasone/Salmeterol) 1 Each Disk.w.dev 1 Inh IH BID 07/19/14 Reported Impression . IMPRESSION: 1. Acute hypercapnic hypoxemic respiratory failure. 2. Obstructive sleep apnea. 3. Flteg-dd-iehusvd diastolic heart failure. 4. Suspect secondary pulmonary hypertension. 5. Alcohol abuse. 6. Tobacco dependence. 7. Hypertension. 8. Morbid obesity. 9. Polycythemia.SEC TO CHRONIC LOW 02 10. Possible pneumonia. 11. Acute exacerbation of chronic obstructive pulmonary disease. Plan . D/W DR GROSS WILL CHECK 6 AND NOCT DESAT PT BETTER NO NEED FOR PHLEBOTOMY AT THIS TIME CONTINUE BIPAP QHS WILL NEED A REPEAT SLEEP STUDY OUTPT DEO DUENAS MD Sep 30, 2018 13:32
[2018-09-30 15:00] VITALS: BP 102/58
[2018-09-30 19:25] VITALS: BP 106/65
[2018-09-30 23:25] VITALS: BP 111/59
[2018-10-01 03:30] VITALS: BP 123/64
[2018-10-01] MEDS: PIPERACILLIN/TAZOBACTAM 3.375 GM in IV NORMAL SALINE 50ML 50 ML IV SCH ×4 (06:02→23:13)
[2018-10-01] MEDS: ALBUTEROL SULFATE 2.5 MG/3 ML NEBU. NEB SCH ×4 (06:12→19:05)
[2018-10-01] MEDS: BUDESONIDE 0.5 MG/2 ML NEBU. NEB SCH ×2 (06:12→19:05)
[2018-10-01 07:00] VITALS: BP 117/71
[2018-10-01] MEDS: ALBUMIN HUMAN 25% 50 ML IV SCH ×2 (08:18→16:46)
[2018-10-01] MEDS: NICOTINE 21MG PATCH. TD SCH (08:18)
[2018-10-01] MEDS: FUROSEMIDE 40 MG/4 ML VIAL. IVP SCH ×2 (08:18→16:47)
[2018-10-01] MEDS: metOLazone 2.5 MG TABLET PO SCH (08:19)
[2018-10-01] MEDS: GABAPENTIN 300 MG CAPSULE. PO SCH ×3 (08:19→20:58)
[2018-10-01] MEDS: LACTOBACILLUS RHAMNOSUS GG 1 CAPSULE. PO SCH ×2 (08:19→20:58)
[2018-10-01] MEDS: METOPROLOL SUCC 24HR ER 100 MG TAB.ER.24H. PO SCH (08:19)
[2018-10-01] MEDS: predniSONE 20 MG TABLET PO SCH (08:19)
[2018-10-01] MEDS: MULTIVITAMIN with MINERAL TABLET. PO SCH (08:20)
[2018-10-01] MEDS: SPIRONOLACTONE 25 MG TABLET PO SCH (08:20)
[2018-10-01] MEDS: FOLIC ACID 1 MG TABLET. PO SCH (08:20)
[2018-10-01] MEDS: LOSARTAN POTASSIUM 25 MG TABLET. PO SCH (08:20)
[2018-10-01] MEDS: POTASSIUM CHLORIDE 20 MEQ TABLET.ER. PO SCH ×3 (08:20→16:47)
--- NOTE | 2018-10-01 09:38 | PDOC ---
Infectious Disease Note Subjective Subjective Says the swelling in his legs is continuing to go down and are feeling less heavy as well Denies F/C/S/N/V/D/SOA ROS ROS per HPI Vital Sign Vital Signs Vital Signs Date Time Temp Pulse Resp B/P (MAP) Pulse Ox O2 Delivery O2 Flow Rate FiO2 10/01/18 08:20 71 117/71 10/01/18 07:00 97.7 19 91 BiPAP/CPAP 97.7 09/30/18 23:25 4.0 Physical Exam PHYSICAL EXAM GENERAL: Propped up in bed, alert, watching TV HEENT: Oral cavity clear NECK: Supple LUNGS: Diminished aeration, 3L O2 HEART: S1, S2 ABDOMEN: Soft and nontender EXTREMITIES: Less edema and redness, + wrinkles lower extremities SKIN: No rash SHEET FOLDER: Alert, responds appropriately PIV ok Objective Assessment Pneumonia Left leg cellulitis - improving COPD, on prednisone CHF Plan Plan of Care cont Zosyn for now Off vanc Probiotics f/u am labs Leg elevation supportive care D/w Dr. Lazar Patient seen and examined. Chart reviewed in detail. Case discussed with MATERIAL LIAISON. Agree with above Plan LAUREL NUNEZ APRN Oct 01, 2018 09:38 LILIAM MALIK MD Oct 01, 2018 22:11
[2018-10-01 11:00] VITALS: BP 106/68
--- NOTE | 2018-10-01 11:31 | PDOC ---
PULMONARY PROGRESS NOTES Subjective PT NOT MORE SOA Vitals Vital Signs Date Time Temp Pulse Resp B/P (MAP) Pulse Ox O2 Delivery O2 Flow Rate FiO2 10/01/18 08:20 71 117/71 10/01/18 08:00 Nasal Cannula 3.0 10/01/18 07:00 97.7 19 91 97.7 ROS: No Nausea, No Chest Pain, No Abdominal Pain General: Alert Lungs: Crackles Cardiovascular: S1, S2 Abdomen: Soft, Other (OBESE) Neuro Exam: Alert Extremities: Other (EDEMA) Skin: Warm Labs Laboratory Tests Test 09/30/18 09:05 White Blood Count 11.2 x10^3/uL (4.0-11.0) Red Blood Count 7.03 x10^6/uL (4.30-5.70) Hemoglobin 20.4 g/dL (13.0-17.5) Hematocrit 63.5 % (39.0-53.0) Mean Corpuscular Volume 90 fL (79-100) Mean Corpuscular Hemoglobin 29 pg (25-35) Mean Corpuscular Hemoglobin Concent 32 g/dL (31-37) Red Cell Distribution Width 16.8 % (11.5-14.5) Platelet Count 125 x10^3/uL (140-400) Sodium Level 136 mmol/L (136-145) Potassium Level 3.2 mmol/L (3.5-5.1) Chloride Level 91 mmol/L (98-107) Carbon Dioxide Level 41 mmol/L (21-32) Anion Gap 4 (6-14) Blood Urea Nitrogen 38 mg/dL (8-26) Creatinine 1.3 mg/dL (0.7-1.3) Estimated GFR (Cockcroft-Gault) 56.9 Glucose Level 140 mg/dL (70-99) Calcium Level 9.7 mg/dL (8.5-10.1) Magnesium Level 2.1 mg/dL (1.8-2.4) Medications Active Scripts Medications Dose Route/Sig Max Daily Dose Days Date Category Duoneb 0.5-3(2.5) Mg/3 Ml (Albuterol/Ipratropium) 3 Ml Ampul.neb 3 Ml NEB QID 09/27/18 Reported Budesonide 0.5 Mg/2 Ml Ampul.neb 1 Vial NEB BID 09/27/18 Reported Solu-Medrol 40 Mg Vial (Methylprednisolone Sod Succ/Pf) 40 Mg/1 Ml Vial 40 Mg IJ Q12HR 09/27/18 Reported Metolazone 2.5 Mg Tablet 2.5 Mg PO DAILY 09/27/18 Reported Potassium Chloride 20 Meq Tablet.er 20 Meq PO TID 09/27/18 Reported Zosyn 3.375 Gm Pre Mix-Bag (Xzgmztqafqpr-Emlc-Fzxwthvf,Iso) 3.375 Gm/50 Ml Froz.piggy 3.375 Gm IV Q8HRS 09/27/18 Reported Multivitamins (Multivitamin) 1 Each Tablet 1 Tab PO DAILY 09/27/18 Reported Metoprolol Succinate ( Xl ) (Metoprolol Succinate) 100 Mg Tab.er.24h 1 Tab PO DAILY 09/27/18 Reported Losartan Potassium (Losartan Potassium) 25 Mg Tablet 25 Mg PO DAILY 09/27/18 Reported Gabapentin (Gabapentin) 300 Mg Capsule 300 Mg PO TID 09/27/18 Reported Folic Acid 1 Mg Tablet 1 Tab PO DAILY 09/27/18 Reported Albuterol Sulfate Conc Neb Soln (Albuterol Sulfate) 2.5 Mg/0.5 Ml Vial.neb 1 Vial NEB Q6HRS 09/27/18 Reported Losartan Potassium 100 Mg Tablet 100 Mg PO DAILY 07/19/14 Reported Metoprolol Succinate ( Xl ) (Metoprolol Succinate) 100 Mg Tab.er.24h 100 Mg PO DAILY 07/19/14 Reported Spironolactone 50 Mg Tablet 50 Mg PO DAILY 07/19/14 Reported Tudorza Pressair (Aclidinium [place]) 400 Mcg Aer.pow.ba 400 Mcg IH 07/19/14 Reported Advair 500-50 Diskus (Fluticasone/Salmeterol) 1 Each Disk.w.dev 1 Inh IH BID 07/19/14 Reported Impression . IMPRESSION: 1. Acute hypercapnic hypoxemic respiratory failure. 2. Obstructive sleep apnea. 3. Jehez-kn-qspbykj diastolic heart failure. 4. Suspect secondary pulmonary hypertension. 5. Alcohol abuse. 6. Tobacco dependence. 7. Hypertension. 8. Morbid obesity. 9. Polycythemia.SEC TO CHRONIC LOW 02 10. Possible pneumonia. 11. Acute exacerbation of chronic obstructive pulmonary disease. Plan . NEEDS 02 WITH CPAP PT BETTER NO NEED FOR PHLEBOTOMY AT THIS TIME CONTINUE BIPAP QHS WILL NEED A REPEAT SLEEP STUDY OUTPT SISILLO,SABATO MD Oct 01, 2018 11:31
[2018-10-01 15:00] VITALS: BP 98/57
[2018-10-01 19:15] VITALS: BP 99/53
[2018-10-01 23:51] VITALS: BP 88/85
[2018-10-02 03:25] VITALS: BP 115/69
[2018-10-02] MEDS: PIPERACILLIN/TAZOBACTAM 3.375 GM in IV NORMAL SALINE 50ML 50 ML IV SCH ×2 (06:14→12:00)
[2018-10-02 07:00] VITALS: BP 113/70
[2018-10-02] MEDS: BUDESONIDE 0.5 MG/2 ML NEBU. NEB SCH (07:40)
[2018-10-02] MEDS: ALBUTEROL SULFATE 2.5 MG/3 ML NEBU. NEB SCH ×2 (07:40→11:32)
--- NOTE | 2018-10-02 08:43 | PDOC ---
Infectious Disease Note Subjective Subjective Says the swelling in his legs is continuing to go down and are feeling less heavy as well Denies F/C/S/N/V/D/SOA Vital Sign Vital Signs Vital Signs Date Time Temp Pulse Resp B/P (MAP) Pulse Ox O2 Delivery O2 Flow Rate FiO2 10/02/18 07:40 96 Nasal Cannula 3.0 10/02/18 07:00 97.8 79 23 113/70 (84) 97.8 Physical Exam PHYSICAL EXAM GENERAL: Propped up in bed, alert, watching TV HEENT: Oral cavity clear NECK: Supple LUNGS: Diminished aeration, 3L O2 HEART: S1, S2 ABDOMEN: Soft and nontender EXTREMITIES: Less edema and redness, + wrinkles lower extremities SKIN: No rash TYPE INSPECTOR: Alert, responds appropriately PIV ok Objective Assessment Pneumonia Left leg cellulitis COPD CHF Plan Plan of Care cont Zosyn ,,, soon to change to po augmentin, try to get pt off o2 Off vanc Probiotics f/u am labs Leg elevation supportive care LENO SOUZA MD Oct 02, 2018 08:43
--- NOTE | 2018-10-02 09:08 | PDOC ---
PULMONARY PROGRESS NOTES Subjective PT NOT MORE SOA Vitals Vital Signs Date Time Temp Pulse Resp B/P (MAP) Pulse Ox O2 Delivery O2 Flow Rate FiO2 10/02/18 07:40 96 Nasal Cannula 3.0 10/02/18 07:00 97.8 79 23 113/70 (84) 97.8 ROS: No Nausea, No Chest Pain, No Abdominal Pain General: Alert Lungs: Crackles Cardiovascular: S1, S2 Abdomen: Soft, Other (OBESE) Neuro Exam: Alert Extremities: Other (EDEMA) Skin: Warm Medications Active Scripts Medications Dose Route/Sig Max Daily Dose Days Date Category Duoneb 0.5-3(2.5) Mg/3 Ml (Albuterol/Ipratropium) 3 Ml Ampul.neb 3 Ml NEB QID 09/27/18 Reported Budesonide 0.5 Mg/2 Ml Ampul.neb 1 Vial NEB BID 09/27/18 Reported Solu-Medrol 40 Mg Vial (Methylprednisolone Sod Succ/Pf) 40 Mg/1 Ml Vial 40 Mg IJ Q12HR 09/27/18 Reported Metolazone 2.5 Mg Tablet 2.5 Mg PO DAILY 09/27/18 Reported Potassium Chloride 20 Meq Tablet.er 20 Meq PO TID 09/27/18 Reported Zosyn 3.375 Gm Pre Mix-Bag (Ysmgoznxevse-Gktk-Tszpvkfu,Iso) 3.375 Gm/50 Ml Froz.piggy 3.375 Gm IV Q8HRS 09/27/18 Reported Multivitamins (Multivitamin) 1 Each Tablet 1 Tab PO DAILY 09/27/18 Reported Metoprolol Succinate ( Xl ) (Metoprolol Succinate) 100 Mg Tab.er.24h 1 Tab PO DAILY 09/27/18 Reported Losartan Potassium (Losartan Potassium) 25 Mg Tablet 25 Mg PO DAILY 09/27/18 Reported Gabapentin (Gabapentin) 300 Mg Capsule 300 Mg PO TID 09/27/18 Reported Folic Acid 1 Mg Tablet 1 Tab PO DAILY 09/27/18 Reported Albuterol Sulfate Conc Neb Soln (Albuterol Sulfate) 2.5 Mg/0.5 Ml Vial.neb 1 Vial NEB Q6HRS 09/27/18 Reported Losartan Potassium 100 Mg Tablet 100 Mg PO DAILY 07/19/14 Reported Metoprolol Succinate ( Xl ) (Metoprolol Succinate) 100 Mg Tab.er.24h 100 Mg PO DAILY 07/19/14 Reported Spironolactone 50 Mg Tablet 50 Mg PO DAILY 07/19/14 Reported Tudorza Pressair (Aclidinium [place]) 400 Mcg Aer.pow.ba 400 Mcg IH 07/19/14 Reported Advair 500-50 Diskus (Fluticasone/Salmeterol) 1 Each Disk.w.dev 1 Inh IH BID 07/19/14 Reported Impression . IMPRESSION: 1. Acute hypercapnic hypoxemic respiratory failure. 2. Obstructive sleep apnea. 3. Ounbl-be-zjjrvvg diastolic heart failure. 4. Suspect secondary pulmonary hypertension. 5. Alcohol abuse. 6. Tobacco dependence. 7. Hypertension. 8. Morbid obesity. 9. Polycythemia.SEC TO CHRONIC LOW 02 10. Possible pneumonia. 11. Acute exacerbation of chronic obstructive pulmonary disease. Plan . NEEDS 02 WITH CPAP PT BETTER NO NEED FOR PHLEBOTOMY AT THIS TIME CONTINUE BIPAP QHS WILL NEED A REPEAT SLEEP STUDY OUTPT Home today? outpatient BIPAP titration sleep study O2 daily 3L at rest, 6L with exertion DEO DUENAS MD Oct 02, 2018 09:08
[2018-10-02] MEDS: GABAPENTIN 300 MG CAPSULE. PO SCH (09:51)
[2018-10-02] MEDS: metOLazone 2.5 MG TABLET PO SCH (09:51)
[2018-10-02] MEDS: FOLIC ACID 1 MG TABLET. PO SCH (09:52)
[2018-10-02] MEDS: LOSARTAN POTASSIUM 25 MG TABLET. PO SCH (09:52)
[2018-10-02] MEDS: METOPROLOL SUCC 24HR ER 100 MG TAB.ER.24H. PO SCH (09:53)
[2018-10-02] MEDS: predniSONE 20 MG TABLET PO SCH (09:53)
[2018-10-02] MEDS: SPIRONOLACTONE 25 MG TABLET PO SCH (09:53)
[2018-10-02] MEDS: MULTIVITAMIN with MINERAL TABLET. PO SCH (09:53)
[2018-10-02] MEDS: NICOTINE 21MG PATCH. TD SCH (09:54)
[2018-10-02] MEDS: LACTOBACILLUS RHAMNOSUS GG 1 CAPSULE. PO SCH (09:54)
[2018-10-02] MEDS: POTASSIUM CHLORIDE 20 MEQ TABLET.ER. PO SCH ×2 (09:54→12:00)
[2018-10-02] MEDS: FUROSEMIDE 40 MG/4 ML VIAL. IVP SCH (09:55)
[2018-10-02] MEDS: ALBUMIN HUMAN 25% 50 ML IV SCH (09:59)
[2018-10-02 10:59] VITALS: BP 114/68
--- NOTE | 2018-10-02 11:37 | DS ---
DATE OF DISCHARGE: 10/02/2018 HOSPITAL COURSE: The patient is a 58-year-old male patient who was originally seen at [facility] with [id number] hypoxic hypercapnic respiratory failure, shortness of breath, excessive weight gain. He gained about 60 pound over the year and about 7 pound in a week prior to admission. He has marked swelling of both lower extremities, did have also cellulitis of his left lower extremity and we treated him with BiPAP, IV Lasix as well as human albumin together with IV antibiotic. As he continued to complain of shortness of breath, a decision was made to transfer him to where he was evaluated by the press secretary, the Infectious Disease specialist and scrum coach. We continued treatment with IV Lasix 40 mg twice a day, IV Solu-Medrol 40 mg 3 times a day together with the human albumin and nebulized treatment. He was also on IV vancomycin and Zosyn. The patient did very well, actually he lost about 45 pounds since admission to [facility]. His swelling of both legs has completely subsided. He remained hemodynamically stable. His lab work remained stable and a decision was made to discharge him home to continue on CPAP with 2 liters of oxygen, should be also on oxygen at 3 liters at rest and 6 liters on exertion. We have had a lengthy discussion about him quitting smoking and drinking alcohol and he needs an appointment to be seen at the sleep center for outpatient BiPAP titration sleep study. PHYSICAL EXAMINATION: GENERAL: When I saw him today, he looked well and was clearly in no apparent respiratory distress. No pallor, jaundice, cyanosis, or thyromegaly. No jugular venous distension. No lower limb edema. VITAL SIGNS: His heart rate was 79, blood pressure 113/70, temperature was 97.8, respiratory rate was 23, and oxygen saturation was 92% on 3 liters of oxygen by nasal cannula. HEAD, EYES, EARS, NOSE AND THROAT: Normocephalic, atraumatic. NECK: Supple. HEART: Showed normal first and second heart sounds. No gallop, rub or murmur. CHEST: Clear to auscultation. No crepitation or rhonchi. ABDOMEN: Distended, soft, nontender. No guarding or rigidity. No organomegaly. All hernial orifices intact. Bowel sounds normal. NEUROLOGIC: He was awake, alert, responding appropriately. All cranial nerves intact. He moves extremities without difficulty, ambulates without assistance or assistive devices. INS AND OUTS: His intake over the last 24 hours was 960, output was 1000. LABORATORY DATA: His most recent lab work showed serum sodium 136, potassium 3.2, chloride 91, bicarbonate 41, anion gap of 4, BUN 38, creatinine 1.3, estimated GFR was 56 mL per minute, his glucose 140, calcium was 9.7, magnesium was 2.1. His white cell count was 11,200, hemoglobin 20, hematocrit 64, MCV 90 and platelet count of 125,000. DISCHARGE MEDICATIONS: He was discharged home to continue prednisone 40 mg once a day for 3 days, then 30 mg once a day for 3 days, 20 mg once a day for 3 days, and 10 mg once a day; furosemide 40 mg p.o. twice a day, lactobacillus rhamnosus 1 capsule twice a day, spironolactone 50 mg once a day, cyclobenzaprine 10 mg 3 times a day, multivitamin 1 tablet once a day, metolazone 2.5 mg daily, metoprolol succinate 100 mg daily, losartan potassium 25 mg once a day, folic acid 1 mg once a day, albuterol sulfate by nebulizer 4 times a day, Augmentin 875 mg once a day for 2 days, gabapentin 300 mg 3 times a day, potassium chloride 20 mEq 3 times a day, and nicotine patch 21 mg once a day for 2 weeks, then 14 mg once a day for 2 weeks and then 7 mg once a day for 2 weeks. FINAL DISCHARGE DIAGNOSES: 1. Acute on chronic hypoxic respiratory failure, much improved. 2. Acute on chronic systolic and diastolic congestive heart failure, well compensated. 3. Morbid obesity, obstructive sleep apnea, on CPAP. 4. Hypertension, well controlled. 5. Thrombocytopenia, stable. 6. Alcohol and tobacco abuse. 7. Community-acquired pneumonia. 8. Left lower extremity cellulitis. LARISA GROSS MD DR: ZAID/severo JOB#: [id number] / [id number]
[2018-10-02 11:51] LABS: CALCIUM 9.6 mg/dL (8.5-10.1); CREATININE 1.4 mg/dL (0.7-1.3); GFR 52.2; POTASSIUM 3.5 mmol/L (3.5-5.1)
--- NOTE | 2018-10-03 12:52 | RESP ---
DATE OF SERVICE: 09/30/2018 ATTENDING PHYSICIAN: Patrice Lazar MD. The patient underwent nocturnal desaturation study on room air. He had periods of oxyhemoglobin desaturation. He was placed on BiPAP. The study revealed minimal amount of desaturation while on BiPAP. IMPRESSION: Slightly abnormal nocturnal desaturation study despite BiPAP at 20/8, rate of 20 to 40% FiO2. PLAN: The patient to undergo outpatient polysomnogram with BiPAP titration. DEO DUENAS MD DR: DIXIE/severo JOB#: [id number] / [id number]
== END 2018-10-02 14:00 | disposition home or self-care (01) | DRG 602 ==
LOC: 2 NORTH 16:47
PROVIDERS: ADMIT Internal Medicine; ATTEND Internal Medicine
PROC: 5A09357 Assistance with Respiratory Ventilation, Less than 24 Consecutive Hours, Continuous Positive Airway Pressure (ICD-10-PCS; principal; 2018-09-29)
PROC: 5A09357 Assistance with Respiratory Ventilation, Less than 24 Consecutive Hours, Continuous Positive Airway Pressure (ICD-10-PCS; 2018-10-01)
PROC: 5A09357 Assistance with Respiratory Ventilation, Less than 24 Consecutive Hours, Continuous Positive Airway Pressure (ICD-10-PCS; 2018-10-02)
DX: L03.116 Cellulitis of left lower limb (principal); J18.9 Pneumonia, unspecified organism; J96.21 Acute and chronic respiratory failure with hypoxia; J96.22 Acute and chronic respiratory failure with hypercapnia; I50.43 Acute on chronic combined systolic (congestive) and diastolic (congestive) heart failure; J44.0 Chronic obstructive pulmonary disease with (acute) lower respiratory infection; J44.1 Chronic obstructive pulmonary disease with (acute) exacerbation; N17.9 Acute kidney failure, unspecified; D68.9 Coagulation defect, unspecified; I11.0 Hypertensive heart disease with heart failure; D69.6 Thrombocytopenia, unspecified; D75.1 Secondary polycythemia; E66.01 Morbid (severe) obesity due to excess calories; F10.10 Alcohol abuse, uncomplicated; F17.210 Nicotine dependence, cigarettes, uncomplicated; G47.33 Obstructive sleep apnea (adult) (pediatric); Z53.20 Procedure and treatment not carried out because of patient's decision for unspecified reasons; Z85.820 Personal history of malignant melanoma of skin; Z80.0 Family history of malignant neoplasm of digestive organs
CPT/HCPCS: 36415; 36600; 80048; 80202; 82565; 82805; 83735; 85007; 85025; 85027; 94618; 94640; 94660; 94760; 94799; 99406; J1940; J2543; J2920; J3370; J7040; J7512; J7613; J7626; P9046

== ENCOUNTER 2021-03-18 19:43 | Inpatient (IN) | payer SELFPAY ==
[~2021-03-18] VITALS: Ht 185.4 cm; Wt 136.4 kg
[~2021-03-18 19:43] MED LIST changes: -ACLI400A2 IH; +ACLI400A3 IH; +ALBU2.5V14 NEB; +BUDE0.5A NEB; +CONTRAST GIVEN. MC PRN; +FOLI1TAB16 PO; +GABA300C18 PO; +IPRA3AMP29 NEB; +LOSA25TA54 PO; +METH40VI IJ; +METO2.5T PO; +MULT-445 PO; +PIPE3.377 IV; +POTA20TA4 PO
[2021-03-18 21:30] VITALS: BP 155/72
[2021-03-18] MEDS ORDERED: IPRATRPIUM/ALBUTEROL 0.5/2.5MG 3 ML NEBU. ONE (22:03)
[2021-03-18] MEDS ORDERED: METO-239 PO (22:14)
[2021-03-18] MEDS ORDERED: POTA20TA4 PO (22:14)
[2021-03-18] MEDS ORDERED: FURO-68 PO (22:14)
[2021-03-18] MEDS ORDERED: LISI2.5T PO (22:14)
[2021-03-18] MEDS ORDERED: GABA300C18 PO (22:14)
[2021-03-18] MEDS ORDERED: POTASSIUM CHLORIDE 20 MEQ TABLET.ER. PO ONE (22:15)
[2021-03-18] MEDS ORDERED: METOPROLOL SUCC 24HR ER 25 MG TAB.ER.24H. PO ONE (22:15)
[2021-03-18] MEDS ORDERED: GABAPENTIN 300 MG CAPSULE. PO SCH (22:28)
[2021-03-18] MEDS ORDERED: methylPREDNISolone SOD SUCC PF 125 MG/2 ML VIAL. IV SCH (22:29)
[2021-03-18 22:45] LABS: BASE EXCESS ABG 8 mmol/L (-3-3); HCO3 ABG 37 mmol/L (21-28); PO2 ABG 68 mmHg (65-108); SAT O2 ABG 95 % (92-99)
[2021-03-18 22:50] LABS: FIO2 ABG 50; PCO2 ABG 63 mmHg (35-46)
--- NOTE | 2021-03-18 22:53 | NUR ---
Received patient to room 116 from [facility] ED via EMS at 2130 after report. All monitors applied. Admission complete. See flowsheet for data. Denies pain, distress, or needs at this time. Stated he would leave AMA if not allowed to eat on arrival. Reminded of need to leave BiPAP on at this time, as patient O2 level too unstable to remove long enough to eat. Pt stated understanding and elected to remain in hospital at this time. Dr Will called with orders received. ABG and CXR taken. Admission complete. Pt resting quietly at this time.
--- NOTE | 2021-03-18 22:56 | NUR ---
Daily meds held at this time, as patient took them at home today.
[2021-03-18 23:00] VITALS: BP 124/64
[2021-03-18] MEDS: IPRATRPIUM/ALBUTEROL 0.5/2.5MG 3 ML NEBU. NEB SCH (23:00)
[2021-03-19] VITALS (25 sets, daily range): BP systolic 116–162; BP diastolic 7–98
[2021-03-19] MEDS: IPRATRPIUM/ALBUTEROL 0.5/2.5MG 3 ML NEBU. NEB SCH ×5 (03:20→20:30)
--- NOTE | 2021-03-19 03:33 | RAD ---
XR CHEST 1V History: Reason: soa / Spl. Instructions: / History: Comparison: March 28, 2021 2:[address] March 18, 2021 Findings: Decreased patchy mid and bibasilar opacities. Small right pleural effusion, unchanged. No pneumothora x. Unchanged heart size. Unchanged prominence of the right leigha related to enlarged pulmonary vasculature or lymphadenopathy i s seen on prior CT. Impression: 1. Decreased patchy mid and bibasilar opacities. 2. Small right pleural effusion, unchanged. Electronically signed by: Hoang Brown DO (03/19/2021 3:30 AM) [facility]
[2021-03-19 07:27] LABS: BASO % 0 % (0-3); EOS % 0 % (0-3); HEMATOCRIT 56.1 % (39.0-53.0); HEMOGLOBIN 18.7 g/dL (13.0-17.5); LYMPH # 0.4 x10^3/uL (1.0-4.8); LYMPH % 6 % (24-48); MEAN CORPUSCULAR HEMOGLOBIN 32 pg (25-35); MEAN CORPUSCULAR HGB CONC 33 g/dL (31-37); MEAN CORPUSCULAR VOLUME 95 fL (79-100); MONO # 0.1 x10^3/uL (0.0-1.1); MONO % 1 % (0-9); NEUT # 5.8 x10^3/uL (1.8-7.7); NEUT % 93 % (31-73); PLATELET COUNT 125 x10^3/uL (140-400); RED BLOOD COUNT 5.89 x10^6/uL (4.30-5.70); RED CELL DISTRIBUTION WIDTH 16.8 % (11.5-14.5); WHITE BLOOD COUNT 6.2 x10^3/uL (4.0-11.0)
[2021-03-19 07:37] LABS: BASE EXCESS ABG 8 mmol/L (-3-3); HCO3 ABG 34 mmol/L (21-28); PCO2 ABG 52 mmHg (35-46); PO2 ABG 64 mmHg (65-108); SAT O2 ABG 94 % (92-99)
[2021-03-19 07:40] LABS: ALBUMIN 3.2 g/dL (3.4-5.0); ALBUMIN/GLOBULIN RATIO 0.9 (1.0-1.7); CALCIUM 8.8 mg/dL (8.5-10.1); CREATININE 0.8 mg/dL (0.7-1.3); GFR 98.9; POTASSIUM 4.9 mmol/L (3.5-5.1); TOTAL PROTEIN 6.7 g/dL (6.4-8.2)
[2021-03-19 10:08] LABS: % LYMPHS 3 % (24-48); % MONOS 1 % (0-10); % SEGS 96 % (35-66); PLT ESTIMATE ADEQUATE (ADEQUATE)
--- NOTE | 2021-03-19 10:30 | PDOC1 ---
History and Physical Date of Admission Date of Admission DATE: 03/19/21 TIME: 10:19 Identification/Chief Complaint Chief Complaint Shortness of breath Source Source: Chart review, Patient History of Present Illness History of Present Illness Patient is a 60-year-old male with past medical history COPD on 3.5 - 4 L at baseline, diastolic CHF, CAD, who is a transfer from [facility] ER due to acute respiratory failure. EMS was contacted to his home as family found him in bed and difficult to arouse. EMS noted some cyanosis to his lips and nose and increase his oxygen to 5 L. He was placed on CPAP and initial O2 saturation was 63%. Upon arrival to [facility] O2 saturation increased to 95% with oxygenation. Patient does report a history of CHF and fluid overload. States he has had some conflicting reports from various physicians about his COPD diagnosis, but does admit to [id number] history of tobacco abuse. He reports associated cough. Labs at [facility] showed pH 7.27, PCO2 93; this improved to pH 7.35, PCO2 71, PO2 65. To continue treatment with BiPAP at [facility], repeat ABG showed pH 7.44, PCO2 52, PO2 65. States he has been vaccinated against COVID-19. Due to concerns of possible impending respiratory failure patient was transferred to [facility] for further medical management. Past Medical History Past Medical History Melanoma, CHF, CAD, HTN, tobacco abuse Past Surgical History Past Surgical History Tonsillectomy, bilateral knee arthroscopy Family History Family History: Hypertension Social History Smoke: 1 pack per day ALCOHOL: heavy Drugs: None Current Medications Current Medications Current Medications Albuterol/ Ipratropium (Duoneb) 3 ml STK-MED ONCE .ROUTE ; Start 03/18/21 at 22:03; Stop 03/18/21 at 22:04; Status DC Metoprolol Succinate (Toprol Xl) 25 mg 1X ONCE PO ; Start 03/18/21 at 22:15; Stop 03/18/21 at 22:28; Status DC Gabapentin (Neurontin) 300 mg TID PO ; Start 03/18/21 at 22:28 Furosemide (Lasix) 40 mg DAILY PO ; Start 03/19/21 at 09:00 Potassium Chloride (Klor-Con) 20 meq 1X ONCE PO ; Start 03/18/21 at 22:15; Stop 03/18/21 at 22:28; Status DC Lisinopril (Prinivil) 2.5 mg DAILY PO ; Start 03/19/21 at 09:00 Methylprednisolone Sodium Succinate (SOLU-Medrol 125MG VIAL) 125 mg Q12HR IV Last administered on 03/18/21at 23:00; Start 03/18/21 at 22:29 Ceftriaxone Sodium (Rocephin) 1 gm Q24H IVP ; Start 03/19/21 at 16:00 Doxycycline Hyclate (Vibra-Tab) 100 mg BID PO ; Start 03/19/21 at 09:00 Albuterol/ Ipratropium (Duoneb) 3 ml Q4HRS NEB Last administered on 03/19/21at 07:31; Start 03/19/21 at 00:00 Info (CONTRAST GIVEN -- Rx MONITORING) 1 each PRN DAILY PRN MC SEE COMMENTS; Start 03/18/21 at 17:00; Stop 03/20/21 at 16:59 Active Scripts Active Reported Lasix (Furosemide) 40 Mg Tablet 1 Tab PO DAILY 30 Days Lisinopril 2.5 Mg Tablet 1 Tab PO DAILY Klor-Con M20 (Potassium Chloride) 20 Meq Tab.er.prt 1 Tab PO DAILY 30 Days Gabapentin (Gabapentin) 300 Mg Capsule 300 Mg PO 5XDAY Metoprolol Succinate ( Xl ) (Metoprolol Succinate) 25 Mg Tab.er.24h 1 Tab PO DAILY Allergies Allergies: Coded Allergies: No Known Drug Allergies (Unverified , 07/19/14) ROS Review of System GENERAL: No history of weight change, weakness or fevers. SKIN: No bruising, hair changes or rashes. EYES: No blurred, double or loss of vision. NOSE AND THROAT: No history of nosebleeds, hoarseness or sore throat. HEART: Denies chest pain, denies palpitations. LUNGS: Shortness of breath, cough. Denies hemoptysis. GASTROINTESTINAL: Denies nausea, vomiting, abdominal pain. GENITOURINARY: Denies dysuria, frequency, urgency, hematuria. NEUROLOGIC: Denies history of numbness, tingling, tremor or weakness. PSYCHIATRIC: Denies anxiety, denies depression. ENDOCRINE: No history of heat or cold intolerance, polyuria or polydipsia. EXTREMITIES: Denies muscle weakness, joint pain, pain on walking or stiffness. Physical Exam Physical Exam General: Alert, Oriented X3, Cooperative, No acute distress HEENT: PERRLA, EOMI Lungs: Coarse lung sounds diffusely and wheezing. Normal air movement. Heart: RRR, no murmurs Cardiovascular: S1, S2 Abdomen: Normal bowel sounds, Soft, No tenderness Extremities: 3+ bilateral lower extremity edema. No clubbing, No cyanosis Skin: No rashes, No significant lesion Neuro: Normal speech, Normal tone, Sensation intact Psych/Mental Status: Mental status NL, Mood NL Vitals Vitals Vital Signs Date Time Temp Pulse Resp B/P (MAP) Pulse Ox O2 Delivery O2 Flow Rate FiO2 03/19/21 07:31 90 BiPAP/CPAP 03/19/21 06:00 80 24 140/76 (97) 03/19/21 04:00 98.0 98.0 Labs Labs Laboratory Tests Test 03/18/21 22:10 03/19/21 06:55 03/19/21 07:34 O2 Saturation 95 % (92-99) 94 % (92-99) Arterial Blood pH 7.38 (7.35-7.45) 7.44 (7.35-7.45) Arterial Blood pCO2 at Patient Temp 63 mmHg (35-46) 52 mmHg (35-46) Arterial Blood pO2 at Patient Temp 68 mmHg (65-108) 64 mmHg (65-108) Arterial Blood HCO3 37 mmol/L (21-28) 34 mmol/L (21-28) Arterial Blood Base Excess 8 mmol/L (-3-3) 8 mmol/L (-3-3) FiO2 50 60% bipap White Blood Count 6.2 x10^3/uL (4.0-11.0) Red Blood Count 5.89 x10^6/uL (4.30-5.70) Hemoglobin 18.7 g/dL (13.0-17.5) Hematocrit 56.1 % (39.0-53.0) Mean Corpuscular Volume 95 fL (79-100) Mean Corpuscular Hemoglobin 32 pg (25-35) Mean Corpuscular Hemoglobin Concent 33 g/dL (31-37) Red Cell Distribution Width 16.8 % (11.5-14.5) Platelet Count 125 x10^3/uL (140-400) Neutrophils (%) (Auto) 93 % (31-73) Lymphocytes (%) (Auto) 6 % (24-48) Monocytes (%) (Auto) 1 % (0-9) Eosinophils (%) (Auto) 0 % (0-3) Basophils (%) (Auto) 0 % (0-3) Neutrophils # (Auto) 5.8 x10^3/uL (1.8-7.7) Lymphocytes # (Auto) 0.4 x10^3/uL (1.0-4.8) Monocytes # (Auto) 0.1 x10^3/uL (0.0-1.1) Eosinophils # (Auto) 0.0 x10^3/uL (0.0-0.7) Basophils # (Auto) 0.0 x10^3/uL (0.0-0.2) Segmented Neutrophils % 96 % (35-66) Lymphocytes % 3 % (24-48) Monocytes % 1 % (0-10) Platelet Estimate Adequate (ADEQUATE) Sodium Level 143 mmol/L (136-145) Potassium Level 4.9 mmol/L (3.5-5.1) Chloride Level 104 mmol/L (98-107) Carbon Dioxide Level 36 mmol/L (21-32) Anion Gap 3 (6-14) Blood Urea Nitrogen 13 mg/dL (8-26) Creatinine 0.8 mg/dL (0.7-1.3) Estimated GFR (Cockcroft-Gault) 98.9 BUN/Creatinine Ratio 16 (6-20) Glucose Level 136 mg/dL (70-99) Calcium Level 8.8 mg/dL (8.5-10.1) Total Bilirubin 1.0 mg/dL (0.2-1.0) Aspartate Amino Transf (AST/SGOT) 11 U/L (15-37) Alanine Aminotransferase (ALT/SGPT) 12 U/L (16-63) Alkaline Phosphatase 66 U/L (46-116) Total Protein 6.7 g/dL (6.4-8.2) Albumin 3.2 g/dL (3.4-5.0) Albumin/Globulin Ratio 0.9 (1.0-1.7) Laboratory Tests Test 03/18/21 22:10 03/19/21 06:55 03/19/21 07:34 O2 Saturation 95 % (92-99) 94 % (92-99) Arterial Blood pH 7.38 (7.35-7.45) 7.44 (7.35-7.45) Arterial Blood pCO2 at Patient Temp 63 mmHg (35-46) 52 mmHg (35-46) Arterial Blood pO2 at Patient Temp 68 mmHg (65-108) 64 mmHg (65-108) Arterial Blood HCO3 37 mmol/L (21-28) 34 mmol/L (21-28) Arterial Blood Base Excess 8 mmol/L (-3-3) 8 mmol/L (-3-3) FiO2 50 60% bipap White Blood Count 6.2 x10^3/uL (4.0-11.0) Red Blood Count 5.89 x10^6/uL (4.30-5.70) Hemoglobin 18.7 g/dL (13.0-17.5) Hematocrit 56.1 % (39.0-53.0) Mean Corpuscular Volume 95 fL (79-100) Mean Corpuscular Hemoglobin 32 pg (25-35) Mean Corpuscular Hemoglobin Concent 33 g/dL (31-37) Red Cell Distribution Width 16.8 % (11.5-14.5) Platelet Count 125 x10^3/uL (140-400) Neutrophils (%) (Auto) 93 % (31-73) Lymphocytes (%) (Auto) 6 % (24-48) Monocytes (%) (Auto) 1 % (0-9) Eosinophils (%) (Auto) 0 % (0-3) Basophils (%) (Auto) 0 % (0-3) Neutrophils # (Auto) 5.8 x10^3/uL (1.8-7.7) Lymphocytes # (Auto) 0.4 x10^3/uL (1.0-4.8) Monocytes # (Auto) 0.1 x10^3/uL (0.0-1.1) Eosinophils # (Auto) 0.0 x10^3/uL (0.0-0.7) Basophils # (Auto) 0.0 x10^3/uL (0.0-0.2) Segmented Neutrophils % 96 % (35-66) Lymphocytes % 3 % (24-48) Monocytes % 1 % (0-10) Platelet Estimate Adequate (ADEQUATE) Sodium Level 143 mmol/L (136-145) Potassium Level 4.9 mmol/L (3.5-5.1) Chloride Level 104 mmol/L (98-107) Carbon Dioxide Level 36 mmol/L (21-32) Anion Gap 3 (6-14) Blood Urea Nitrogen 13 mg/dL (8-26) Creatinine 0.8 mg/dL (0.7-1.3) Estimated GFR (Cockcroft-Gault) 98.9 BUN/Creatinine Ratio 16 (6-20) Glucose Level 136 mg/dL (70-99) Calcium Level 8.8 mg/dL (8.5-10.1) Total Bilirubin 1.0 mg/dL (0.2-1.0) Aspartate Amino Transf (AST/SGOT) 11 U/L (15-37) Alanine Aminotransferase (ALT/SGPT) 12 U/L (16-63) Alkaline Phosphatase 66 U/L (46-116) Total Protein 6.7 g/dL (6.4-8.2) Albumin 3.2 g/dL (3.4-5.0) Albumin/Globulin Ratio 0.9 (1.0-1.7) Images Images PATIENT: WOODY ARCOS ACCOUNT: [id number] : 1960 LOCATION: ER AGE: 60 SEX: M EXAM STATUS: REG ER ORD. PHYSICIAN: LISA RAY MD REASON: cough, dyspnea PROCEDURE: CHEST AP ONLY AP chest. HISTORY: Cough, dyspnea AP view was taken of the chest. The heart is enlarged. There are hazy bilateral infiltrates versus pulmonary edema worse on the right compared to the left.. Atypical or Covid-19 pneumonia is possible, heart failure pulmonary edema is possible. IMPRESSION: 1. Cardiomegaly. 2. Hazy infiltrates or edema worse on the right than on the left. Electronically signed by: Jaime Feldman MD (03/18/2021 3:33 PM) [id number]AG[facility] REPORT Signed PATIENT: WOODY ARCOS ACCOUNT: [id number] : 1960 LOCATION: ER AGE: 60 SEX: M EXAM STATUS: REG ER ORD. PHYSICIAN: LISA RAY MD REASON: dyspnea, positive dimer, 100mls omni 350 PROCEDURE: CT ANGIOGRAPHY CHEST Exam: CT of chest with contrast INDICATION: Dyspnea, positive d-dimer TECHNIQUE: Sequential axial images through the chest obtained following the administration of 100 mL of Isovue-370 IV contrast. Sagittal and coronal reformatted images were reconstructed from the axial data and reviewed. 3-D reformatted images were reconstructed from the axial data and reviewed. Exposure: One or more of the following in the visualized dose reduction techniques were utilized for this examination: 1. Automated exposure control 2. Adjustment of the MA and/or KV according to patient size 3. Use of iterative of reconstructive technique Comparisons: Chest x-ray same day FINDINGS: Visual is portions of the thyroid are unremarkable. Bilateral hilar adenopathy is noted. Heart size is normal. No pericardial effusion. Thoracic aorta has a normal course and caliber. Pulmonary artery is not enlarged. No pulmonary embolus identified within the main, lobar or segmental pulmonary arteries. Airways are patent. Mild centrilobular emphysematous change noted at the upper lungs. No consolidation or pneumothorax. Small right pleural effusion. Visualized upper abdomen is unremarkable. No suspicious osseous lesions or acute fractures. IMPRESSION: 1. No pulmonary embolus identified within the main, lobar or segmental pulmonary arteries. 2. Small right pleural effusion with adjacent airspace disease likely atelectasis. VTE Prophylaxis Ordered VTE Prophylaxis Devices: No VTE Pharmacological Prophylaxi: Yes Assessment/Plan Assessment/Plan Acute respiratory failure with hypoxia Possible undiagnosed COPD Diastolic CHF History CAD History hypertension Plan: Patient was initially admitted to the ICU due to concerns of respiratory failure After treatment with CPAP he is down to 6 L CTA chest at [facility] negative for PE; CXR at [facility] showed cardiomegaly. Consultation placed to pulmonology Continue steroid treatment; duo nebulizers as needed Empiric antibiotics Counseled patient on tobacco cessation Will resume home medications FEN - Cardiac diet PPX - Lovenox FULL CODE Dispo - inpatient for above Advance Care Planning: Total time spent [id number] with patient 16 minutes in discussion with goals of care, comfort care, end-of-life care, pain management, code status; patient names son (Mayo Arcos) as surrogate decision-maker. Justifications for Admission Other Justification ESTHER ROBIN MD Mar 19, 2021 10:30
[2021-03-19] MEDS ORDERED: CALCIUM CARBONATE 500 MG TAB.CHEW PO PRN (11:15)
[2021-03-19] MEDS ORDERED: HYDROcodone/APAP 5/325MG 1 TAB TABLET PO PRN (11:15)
[2021-03-19] MEDS ORDERED: MORPHINE SULFATE 2 MG/ML VIAL. IV PRN (11:15)
[2021-03-19] MEDS ORDERED: 0.9 % SODIUM CHLORIDE 10 ML DISP.SYRIN. IV PRN (11:15)
[2021-03-19] MEDS ORDERED: ACETAMINOPHEN 325 MG TABLET. PO PRN (11:15)
[2021-03-19] MEDS ORDERED: MAG HYDROX/ALUMINUM HYD/SIMETH 30 ML ORAL.SUSP PO PRN (11:15)
[2021-03-19] MEDS ORDERED: ONDANSETRON PF 4 MG/2 ML VIAL. IVP PRN (11:15)
[2021-03-19] MEDS ORDERED: MAGNESIUM HYDROXIDE 2,400 MG/30 ML ORAL.SUSP. PO PRN (11:15)
[2021-03-19] MEDS ORDERED: IV NORMAL SALINE 500ML BAG 500 ML IV SCH (11:30)
[2021-03-19] MEDS: methylPREDNISolone SOD SUCC PF 125 MG/2 ML VIAL. IV SCH ×2 (12:00→19:22)
[2021-03-19] MEDS ORDERED: FUROSEMIDE 40 MG TABLET. PO SCH (12:00)
--- NOTE | 2021-03-19 13:24 | PDOC ---
PULMONARY PROGRESS NOTES DATE: 03/19/21 TIME: 13:24 Vitals Vital Signs Date Time Temp Pulse Resp B/P (MAP) Pulse Ox O2 Delivery O2 Flow Rate FiO2 03/19/21 12:00 98.4 96 20 116/67 (83) 86 Nasal Cannula 6.0 98.4 General: Alert Lungs: Crackles Cardiovascular: S1, S2 Abdomen: Soft, Other Extremities: Other Labs Laboratory Tests Test 03/18/21 22:10 03/19/21 06:55 03/19/21 07:34 O2 Saturation 95 % (92-99) 94 % (92-99) Arterial Blood pH 7.38 (7.35-7.45) 7.44 (7.35-7.45) Arterial Blood pCO2 at Patient Temp 63 mmHg (35-46) 52 mmHg (35-46) Arterial Blood pO2 at Patient Temp 68 mmHg (65-108) 64 mmHg (65-108) Arterial Blood HCO3 37 mmol/L (21-28) 34 mmol/L (21-28) Arterial Blood Base Excess 8 mmol/L (-3-3) 8 mmol/L (-3-3) FiO2 50 60% bipap White Blood Count 6.2 x10^3/uL (4.0-11.0) Red Blood Count 5.89 x10^6/uL (4.30-5.70) Hemoglobin 18.7 g/dL (13.0-17.5) Hematocrit 56.1 % (39.0-53.0) Mean Corpuscular Volume 95 fL (79-100) Mean Corpuscular Hemoglobin 32 pg (25-35) Mean Corpuscular Hemoglobin Concent 33 g/dL (31-37) Red Cell Distribution Width 16.8 % (11.5-14.5) Platelet Count 125 x10^3/uL (140-400) Neutrophils (%) (Auto) 93 % (31-73) Lymphocytes (%) (Auto) 6 % (24-48) Monocytes (%) (Auto) 1 % (0-9) Eosinophils (%) (Auto) 0 % (0-3) Basophils (%) (Auto) 0 % (0-3) Neutrophils # (Auto) 5.8 x10^3/uL (1.8-7.7) Lymphocytes # (Auto) 0.4 x10^3/uL (1.0-4.8) Monocytes # (Auto) 0.1 x10^3/uL (0.0-1.1) Eosinophils # (Auto) 0.0 x10^3/uL (0.0-0.7) Basophils # (Auto) 0.0 x10^3/uL (0.0-0.2) Segmented Neutrophils % 96 % (35-66) Lymphocytes % 3 % (24-48) Monocytes % 1 % (0-10) Platelet Estimate Adequate (ADEQUATE) Sodium Level 143 mmol/L (136-145) Potassium Level 4.9 mmol/L (3.5-5.1) Chloride Level 104 mmol/L (98-107) Carbon Dioxide Level 36 mmol/L (21-32) Anion Gap 3 (6-14) Blood Urea Nitrogen 13 mg/dL (8-26) Creatinine 0.8 mg/dL (0.7-1.3) Estimated GFR (Cockcroft-Gault) 98.9 BUN/Creatinine Ratio 16 (6-20) Glucose Level 136 mg/dL (70-99) Calcium Level 8.8 mg/dL (8.5-10.1) Total Bilirubin 1.0 mg/dL (0.2-1.0) Aspartate Amino Transf (AST/SGOT) 11 U/L (15-37) Alanine Aminotransferase (ALT/SGPT) 12 U/L (16-63) Alkaline Phosphatase 66 U/L (46-116) Total Protein 6.7 g/dL (6.4-8.2) Albumin 3.2 g/dL (3.4-5.0) Albumin/Globulin Ratio 0.9 (1.0-1.7) Laboratory Tests Test 03/18/21 22:10 03/19/21 06:55 03/19/21 07:34 O2 Saturation 95 % (92-99) 94 % (92-99) Arterial Blood pH 7.38 (7.35-7.45) 7.44 (7.35-7.45) Arterial Blood pCO2 at Patient Temp 63 mmHg (35-46) 52 mmHg (35-46) Arterial Blood pO2 at Patient Temp 68 mmHg (65-108) 64 mmHg (65-108) Arterial Blood HCO3 37 mmol/L (21-28) 34 mmol/L (21-28) Arterial Blood Base Excess 8 mmol/L (-3-3) 8 mmol/L (-3-3) FiO2 50 60% bipap White Blood Count 6.2 x10^3/uL (4.0-11.0) Red Blood Count 5.89 x10^6/uL (4.30-5.70) Hemoglobin 18.7 g/dL (13.0-17.5) Hematocrit 56.1 % (39.0-53.0) Mean Corpuscular Volume 95 fL (79-100) Mean Corpuscular Hemoglobin 32 pg (25-35) Mean Corpuscular Hemoglobin Concent 33 g/dL (31-37) Red Cell Distribution Width 16.8 % (11.5-14.5) Platelet Count 125 x10^3/uL (140-400) Neutrophils (%) (Auto) 93 % (31-73) Lymphocytes (%) (Auto) 6 % (24-48) Monocytes (%) (Auto) 1 % (0-9) Eosinophils (%) (Auto) 0 % (0-3) Basophils (%) (Auto) 0 % (0-3) Neutrophils # (Auto) 5.8 x10^3/uL (1.8-7.7) Lymphocytes # (Auto) 0.4 x10^3/uL (1.0-4.8) Monocytes # (Auto) 0.1 x10^3/uL (0.0-1.1) Eosinophils # (Auto) 0.0 x10^3/uL (0.0-0.7) Basophils # (Auto) 0.0 x10^3/uL (0.0-0.2) Segmented Neutrophils % 96 % (35-66) Lymphocytes % 3 % (24-48) Monocytes % 1 % (0-10) Platelet Estimate Adequate (ADEQUATE) Sodium Level 143 mmol/L (136-145) Potassium Level 4.9 mmol/L (3.5-5.1) Chloride Level 104 mmol/L (98-107) Carbon Dioxide Level 36 mmol/L (21-32) Anion Gap 3 (6-14) Blood Urea Nitrogen 13 mg/dL (8-26) Creatinine 0.8 mg/dL (0.7-1.3) Estimated GFR (Cockcroft-Gault) 98.9 BUN/Creatinine Ratio 16 (6-20) Glucose Level 136 mg/dL (70-99) Calcium Level 8.8 mg/dL (8.5-10.1) Total Bilirubin 1.0 mg/dL (0.2-1.0) Aspartate Amino Transf (AST/SGOT) 11 U/L (15-37) Alanine Aminotransferase (ALT/SGPT) 12 U/L (16-63) Alkaline Phosphatase 66 U/L (46-116) Total Protein 6.7 g/dL (6.4-8.2) Albumin 3.2 g/dL (3.4-5.0) Albumin/Globulin Ratio 0.9 (1.0-1.7) Medications Active Scripts Medications Dose Route/Sig Max Daily Dose Days Date Category Lasix (Furosemide) 40 Mg Tablet 1 Tab PO DAILY 03/18/21 Reported Lisinopril 2.5 Mg Tablet 1 Tab PO DAILY 03/18/21 Reported Klor-Con M20 (Potassium Chloride) 20 Meq Tab.er.prt 1 Tab PO DAILY 30 03/18/21 Reported Gabapentin (Gabapentin) 300 Mg Capsule 300 Mg PO 5XDAY 03/18/21 Reported Metoprolol Succinate ( Xl ) (Metoprolol Succinate) 25 Mg Tab.er.24h 1 Tab PO DAILY 03/18/21 Reported Impression . Full consult dictated Acute on chronic cor pulmonale Acute exacerbation of COPD Acute on chronic hypercapnic respiratory failure See orders DEO DUENAS MD Mar 19, 2021 13:24
[2021-03-19] MEDS: GABAPENTIN 300 MG CAPSULE. PO SCH ×2 (14:07→18:00)
[2021-03-19] MEDS: DOXYCYCLINE HYCLATE 100 MG TABLET PO SCH ×2 (14:09→20:44)
[2021-03-19] MEDS: METOPROLOL SUCC 24HR ER 25 MG TAB.ER.24H. PO SCH (14:10)
[2021-03-19] MEDS: ENOXAPARIN 40 MG/0.4 ML SYRINGE. SQ SCH (14:11)
[2021-03-19] MEDS: FUROSEMIDE 40 MG TABLET. PO SCH (14:11)
[2021-03-19] MEDS: LISINOPRIL 5 MG TABLET. PO SCH (14:12)
[2021-03-19] MEDS: POTASSIUM CHLORIDE 20 MEQ TABLET.ER. PO SCH (14:15)
--- NOTE | 2021-03-19 15:59 | NUR ---
SS following for discharge planning. SS reviewed pt chart and discussed with pt RN. Pt is from home and is currently requiring oxygen at four liters nasal canula. BIPAP at HS. Pt on IV Rocephin. Pt has home oxygen. SS will continue to follow for discharge planning.
[2021-03-19] MEDS: cefTRIAXone IV Push 1 GM VIAL. IVP SCH (16:18)
--- NOTE | 2021-03-19 19:25 | NUR ---
Patient questioned dosage of Gabapentin and states at home he takes 900MG BID and 300MG at HS, per emr dose is 300MG 5x/day; Dr Crump paged. Dr Crump returned page notified of above, reviewed BUN/Cr and discussed giving higher dose of Gabapentin now and start home dose in am. Orders received to give 900MG PO now and start 03/20/21 Gabapentin 900MG at 0900 and 1400 and 300MG at HS; see orders. Patient notified and is agreeable.
--- NOTE | 2021-03-19 19:33 | NUR ---
able to take all meds. Activated to chair and wishes to remain up. Assist stand and activate in room per request. Refuses sox .Report FEET hurt w any pressure to area/sox off per request. Questioned gabapentin dose ,clarified w order changes per Sabine SCOTT . communicated to patient. Sats consistent at 85% 4 L past 12 H
[2021-03-19] MEDS ORDERED: GABAPENTIN 300 MG CAPSULE. PO ONE (19:45)
[2021-03-19] MEDS: LACTOBACILLUS RHAMNOSUS GG 1 CAPSULE. PO SCH (20:43)
[2021-03-20] VITALS (17 sets, daily range): BP systolic 122–166; BP diastolic 60–94
[2021-03-20] MEDS: methylPREDNISolone SOD SUCC PF 125 MG/2 ML VIAL. IV SCH ×4 (00:03→16:14)
--- NOTE | 2021-03-20 01:10 | CONS ---
DATE OF CONSULTATION: 03/19/2021 ATTENDING PHYSICIAN: Elise Will MD REASON FOR CONSULTATION: The patient is seen in pulmonary consultation at the request of Dr. Will for acute on chronic hypoxemic hypercapnic respiratory failure. HISTORY OF PRESENT ILLNESS: The patient is a 60-year-old male with a history of chronic respiratory failure, normally wears 3-4 liters of oxygen at home, chronic diastolic heart failure, peripheral edema, chronic lower extremity lymphedema. Presented to the emergency room after being found at home somewhat unresponsive. EMS was summoned to his house. The patient had a low O2 sats. He was placed on oxygen. In the Emergency Department, he had a pH of 7.27, PaCO2 of 93. He was placed on BiPAP. Repeat arterial blood gas revealed a pH of 7.35, PaCO2 of 71, pO2 of 65. The patient is currently awake, alert. He is sitting up in the chair, eating lunch. He denies currently smoking. He does not experience acute exacerbations of COPD, has been told he has COPD and chronic bronchitis. Denies fever, chills, no COVID-19 exposures. He was tested and was negative. He has not been vaccinated for COVID-19. PAST MEDICAL HISTORY: Chronic diastolic heart failure, coronary artery disease, hypertension, COPD, tobacco dependent, chronic lower extremity lymphedema, obstructive sleep apnea, uses home CPAP. He also has a history of melanoma. PAST SURGICAL HISTORY: Status post tonsillectomy, bilateral knee arthroplasty. FAMILY HISTORY: Hypertension. SOCIAL HISTORY: Heavy alcohol intake. He smokes 1 pack of cigarettes a day. REVIEW OF SYSTEMS: As indicated above, otherwise other systems were reviewed and negative. CURRENT MEDICATIONS: List was reviewed. PHYSICAL EXAMINATION: GENERAL: Morbid obese individual with a body mass index of 38. VITAL SIGNS: Since admission, he has been afebrile. He is currently on 5 liters of oxygen supplementation saturation of approximately 88%. HEENT: Eyes, the sclerae were nonicteric. NECK: Jugular venous distention could not be assessed secondary to body habitus. CHEST: Full expansion. LUNGS: Poor airflow. No wheezes. CARDIOVASCULAR: Regular rate and rhythm with S1, S2, no S3. ABDOMEN: Soft, obese. EXTREMITIES: Marked changes compatible with chronic lymphedema. NEUROLOGIC: The patient was awake, alert, following commands. A detailed neuro exam was not performed. LABORATORY DATA: CT angiogram was obtained. There was no evidence of pulmonary emboli. There was evidence of emphysema. There was bibasilar ground glass opacities, left greater than right. Labs were reviewed. Arterial blood gas this morning, pH of 7.44, PaCO2 of 52, pO2 of 64, bicarbonate of 34 on 60% BiPAP. White count was normal, hemoglobin and hematocrit were elevated. Electrolytes were noted. Chest x-ray reviewed. IMPRESSION: 1. Acute on chronic hypoxemic hypercapnic respiratory failure. 2. Acute exacerbation of chronic obstructive pulmonary disease. 3. Acute on chronic cor pulmonale. 4. Obstructive sleep apnea, patient claims he is having some difficulty with his CPAP machine lately. 5. Polycythemia secondary to chronic hypoxemia. 6. Acute on chronic diastolic heart failure. 7. Coronary artery disease. 8. Morbid obesity. 9. Hypertension. 10. Tobacco dependent. 11. Alcoholism. PLAN: 1. Continue current support with current BiPAP settings. The patient will qualify for home Trilogy. 2. Continue diuresis. 3. The patient is instructed on the importance of discontinuing alcohol and tobacco. 4. Monitor for alcohol withdrawal. 5. CT angiogram reviewed, no evidence of pulmonary embolism. 6. Some mild ground glass opacities in the bases of the lungs could be nonspecific, we will initiate steroids, continue empiric antibiotics for now. I do appreciate the privilege in sharing in the patient care. Total cumulative critical care time of 50 minutes, interviewing and examining the patient, going over the current documentation, reviewing the imaging studies and labs and formulating impression and plan. [facility] DR: Pantera TID: [id number]
[2021-03-20] MEDS: IPRATRPIUM/ALBUTEROL 0.5/2.5MG 3 ML NEBU. NEB SCH ×6 (04:00→20:58)
[2021-03-20] MEDS: LISINOPRIL 5 MG TABLET. PO SCH (07:51)
[2021-03-20] MEDS: LACTOBACILLUS RHAMNOSUS GG 1 CAPSULE. PO SCH ×2 (07:51→20:43)
[2021-03-20] MEDS: FUROSEMIDE 40 MG TABLET. PO SCH (07:51)
[2021-03-20] MEDS: DOXYCYCLINE HYCLATE 100 MG TABLET PO SCH ×2 (07:52→20:43)
[2021-03-20] MEDS: METOPROLOL SUCC 24HR ER 25 MG TAB.ER.24H. PO SCH (07:52)
[2021-03-20] MEDS: POTASSIUM CHLORIDE 20 MEQ TABLET.ER. PO SCH (07:52)
--- NOTE | 2021-03-20 08:33 | PDOC ---
[employer] PROGRESS NOTE Date of Service DOS: DATE: 03/20/21 TIME: 08:21 Chief Complaint Chief Complaint Acute respiratory failure with hypoxia Possible undiagnosed COPD Diastolic CHF History CAD History hypertension Plan: Patient was initially admitted to the ICU due to concerns of respiratory failure After treatment with CPAP he is down to 6 L CTA chest at [facility] negative for PE; CXR at [facility] showed cardiomegaly. Consultation placed to pulmonology Continue steroid treatment; duo nebulizers as needed Empiric antibiotics Counseled patient on tobacco cessation Will resume home medications FEN - Cardiac diet PPX - Lovenox FULL CODE Dispo - inpatient for above History of Present Illness History of Present Illness Patient is a 60-year-old male with past medical history COPD on 3.5 - 4 L at baseline, diastolic CHF, CAD, who is a transfer from [facility] ER due to acute respiratory failure. EMS was contacted to his home as family found him in bed and difficult to arouse. EMS noted some cyanosis to his lips and nose and increase his oxygen to 5 L. He was placed on CPAP and initial O2 saturation was 63%. Upon arrival to [facility] O2 saturation increased to 95% with oxygenation. Patient does report a history of CHF and fluid overload. States he has had some conflicting reports from various physicians about his COPD diagnosis, but does admit to [id number] history of tobacco abuse. He reports associated cough. Labs at [facility] showed pH 7.27, PCO2 93; this improved to pH 7.35, PCO2 71, PO2 65. To continue treatment with BiPAP at [facility], repeat ABG showed pH 7.44, PCO2 52, PO2 65. States he has been vaccinated against COVID-19. Due to concerns of possible impending respiratory failure patient was transferred to [facility] for further medical management. 03/20/2021: Afebrile, breathing at baseline requirement of 4 L nasal cannula. Will continue diuresis and obtain echocardiogram. Will continue treatment for bibasilar opacities and COPD exacerbation. May discharge to medical floors. Vitals/I&O Vitals/I&O: Vital Signs Date Time Temp Pulse Resp B/P (MAP) Pulse Ox O2 Delivery O2 Flow Rate FiO2 03/20/21 07:55 Nasal Cannula 4.0 03/20/21 07:52 96 161/92 03/20/21 07:41 98.7 20 91 98.7 I & O 03/19/21 03/19/21 03/20/21 15:00 23:00 07:00 Intake Total 1020 ml 400 ml 520 ml Output Total 750 ml 1250 ml 650 ml Balance 270 ml -850 ml -130 ml Physical Exam General: Alert, Cooperative, No acute distress Heart: Regular rate Lungs: Crackles Abdomen: Soft, No tenderness Extremities: No clubbing, Other ( 3+ bilateral lower extremity edema) Skin: No rashes, No breakdown Comment Review of Relevant I have reviewed the following items suzanna (where applicable) has been applied. Medications: Current Medications Medications (Trade) Dose Ordered Sig/Cole Route PRN Reason Start Time Stop Time Status Last Admin Dose Admin Furosemide (Lasix) 40 mg DAILY PO 03/19/21 09:00 03/20/21 07:51 Lisinopril (Prinivil) 2.5 mg DAILY PO 03/19/21 09:00 03/20/21 07:51 Ceftriaxone Sodium (Rocephin) 1 gm Q24H IVP 03/19/21 16:00 03/19/21 16:18 Doxycycline Hyclate (Vibra-Tab) 100 mg BID PO 03/19/21 09:00 03/20/21 07:52 Gabapentin (Neurontin) 300 mg 5XDAY PO 03/19/21 14:00 03/19/21 19:30 DC 03/19/21 14:07 Metoprolol Succinate (Toprol Xl) 25 mg DAILY PO 03/19/21 12:00 03/20/21 07:52 Potassium Chloride (Klor-Con) 20 meq DAILY PO 03/19/21 12:00 03/20/21 07:52 Methylprednisolone Sodium Succinate (SOLU-Medrol 125MG VIAL) 65 mg Q6HRS IV 03/19/21 12:00 03/20/21 05:53 Enoxaparin Sodium (Lovenox 40mg Syringe) 40 mg Q24H SQ 03/19/21 12:00 03/19/21 14:11 Lactobacillus Rhamnosus (Culturelle) 1 cap BID PO 03/19/21 21:00 03/20/21 07:51 Gabapentin (Neurontin) 900 mg 1X ONCE PO 03/19/21 19:45 03/19/21 19:46 DC 03/19/21 20:43 Gabapentin (Neurontin) 900 mg BID@0900,1400 PO 03/20/21 09:00 03/20/21 07:52 Justifications for Admission Other Justification Acute respiratory failure with hypoxia, COPD, CHF ESTHER ROBIN MD Mar 20, 2021 08:33
--- NOTE | 2021-03-20 08:41 | PDOC ---
PULMONARY PROGRESS NOTES DATE: 03/20/21 TIME: 08:41 Subjective pt. wore BIPAP overnight now on 4 liters NC no overnight events Vitals Vital Signs Date Time Temp Pulse Resp B/P (MAP) Pulse Ox O2 Delivery O2 Flow Rate FiO2 03/20/21 07:55 Nasal Cannula 4.0 03/20/21 07:52 96 161/92 03/20/21 07:41 98.7 20 91 98.7 ROS: No Nausea, No Chest Pain, No Abdominal Pain General: Alert, Oriented X4 Lungs: Crackles Cardiovascular: S1, S2 Abdomen: Soft, Other Extremities: Other Labs Laboratory Tests Test 03/18/21 22:10 03/19/21 06:55 03/19/21 07:34 O2 Saturation 95 % (92-99) 94 % (92-99) Arterial Blood pH 7.38 (7.35-7.45) 7.44 (7.35-7.45) Arterial Blood pCO2 at Patient Temp 63 mmHg (35-46) 52 mmHg (35-46) Arterial Blood pO2 at Patient Temp 68 mmHg (65-108) 64 mmHg (65-108) Arterial Blood HCO3 37 mmol/L (21-28) 34 mmol/L (21-28) Arterial Blood Base Excess 8 mmol/L (-3-3) 8 mmol/L (-3-3) FiO2 50 60% bipap White Blood Count 6.2 x10^3/uL (4.0-11.0) Red Blood Count 5.89 x10^6/uL (4.30-5.70) Hemoglobin 18.7 g/dL (13.0-17.5) Hematocrit 56.1 % (39.0-53.0) Mean Corpuscular Volume 95 fL (79-100) Mean Corpuscular Hemoglobin 32 pg (25-35) Mean Corpuscular Hemoglobin Concent 33 g/dL (31-37) Red Cell Distribution Width 16.8 % (11.5-14.5) Platelet Count 125 x10^3/uL (140-400) Neutrophils (%) (Auto) 93 % (31-73) Lymphocytes (%) (Auto) 6 % (24-48) Monocytes (%) (Auto) 1 % (0-9) Eosinophils (%) (Auto) 0 % (0-3) Basophils (%) (Auto) 0 % (0-3) Neutrophils # (Auto) 5.8 x10^3/uL (1.8-7.7) Lymphocytes # (Auto) 0.4 x10^3/uL (1.0-4.8) Monocytes # (Auto) 0.1 x10^3/uL (0.0-1.1) Eosinophils # (Auto) 0.0 x10^3/uL (0.0-0.7) Basophils # (Auto) 0.0 x10^3/uL (0.0-0.2) Segmented Neutrophils % 96 % (35-66) Lymphocytes % 3 % (24-48) Monocytes % 1 % (0-10) Platelet Estimate Adequate (ADEQUATE) Sodium Level 143 mmol/L (136-145) Potassium Level 4.9 mmol/L (3.5-5.1) Chloride Level 104 mmol/L (98-107) Carbon Dioxide Level 36 mmol/L (21-32) Anion Gap 3 (6-14) Blood Urea Nitrogen 13 mg/dL (8-26) Creatinine 0.8 mg/dL (0.7-1.3) Estimated GFR (Cockcroft-Gault) 98.9 BUN/Creatinine Ratio 16 (6-20) Glucose Level 136 mg/dL (70-99) Calcium Level 8.8 mg/dL (8.5-10.1) Total Bilirubin 1.0 mg/dL (0.2-1.0) Aspartate Amino Transf (AST/SGOT) 11 U/L (15-37) Alanine Aminotransferase (ALT/SGPT) 12 U/L (16-63) Alkaline Phosphatase 66 U/L (46-116) Total Protein 6.7 g/dL (6.4-8.2) Albumin 3.2 g/dL (3.4-5.0) Albumin/Globulin Ratio 0.9 (1.0-1.7) Medications Active Scripts Medications Dose Route/Sig Max Daily Dose Days Date Category Lasix (Furosemide) 40 Mg Tablet 1 Tab PO DAILY 03/18/21 Reported Lisinopril 2.5 Mg Tablet 1 Tab PO DAILY 03/18/21 Reported Klor-Con M20 (Potassium Chloride) 20 Meq Tab.er.prt 1 Tab PO DAILY 03/18/21 Reported Gabapentin (Gabapentin) 300 Mg Capsule 300 Mg PO 5XDAY 03/18/21 Reported Metoprolol Succinate ( Xl ) (Metoprolol Succinate) 25 Mg Tab.er.24h 1 Tab PO DAILY 03/18/21 Reported Impression . IMPRESSION: 1. Acute on chronic hypoxemic hypercapnic respiratory failure.--improved 2. Acute exacerbation of chronic obstructive pulmonary disease. 3. Acute on chronic cor pulmonale. 4. Obstructive sleep apnea, patient claims he is having some difficulty with his CPAP machine lately. 5. Polycythemia secondary to chronic hypoxemia. 6. Acute on chronic diastolic heart failure. 7. Coronary artery disease. 8. Morbid obesity. 9. Hypertension. 10. Tobacco dependent. 11. Alcoholism. Plan . PLAN: Continue supplemental oxygen to keep sats above 90%, currently on 4 liters NC, baseline oxygen requirement is 3 liters NC BIPAP at HS and PRN, The patient will qualify for home Trilogy. Follow cardiology recs- EF 55-60%, cont. diuresis CT reviewed no PE Monitor for alcohol withdrawal Continue steroids with taper Continue ABX Social work for DC planning will need Trilogy at [place] DVT/GI PPX D/W RN and PT. ok to transfer out of ICU if ok with other consults DEO DUENAS MD Mar 20, 2021 08:41
[2021-03-20] MEDS ORDERED: NON FORMULARY ITEM (Lisinopril 1 TAB) PO SCH (09:00)
[2021-03-20] MEDS ORDERED: GABAPENTIN 300 MG CAPSULE. PO SCH (09:00)
[2021-03-20] MEDS: ENOXAPARIN 40 MG/0.4 ML SYRINGE. SQ SCH (12:00)
--- NOTE | 2021-03-20 13:23 | CARD ---
MR#: [id number] Date of Study: 03/20/2021 Ordering Physician: ESTHER ROBIN, Referring Physician: ESTHER ROBIN Tech: Esa Beverly [facility] APPROVED REPORT EXAM: Two-dimensional and M-mode echocardiogram with Doppler and color Doppler. Other Information Quality : FairHR: 104bpm Rhythm : NSR INDICATION Congestive Heart Failure RISK FACTORS Hypertension Obesity Hyperlipidemia 2D DIMENSIONS Left Atrium(2D)4.2 (1.6-4.0cm)IVSd1.0 (0.7-1.1cm) Aortic Root(2D)3.2 (2.0-3.7cm)LVDd6.6 (3.9-5.9cm) PWd1.0 (0.7-1.1cm)LVDs3.2 (2.5-4.0cm) Aortic Valve AoV Peak Gonzalez.214.5cm/sAoV VTI33.1cm AO Peak GR.18.4mmHgLVOT VTI 22.95cm AO Mean GR.10mmHg Mitral Valve MV E Ifqksyjd05.4cm/sMV E Peak Gr.4mmHg MV DECEL [id number] A Tflyuwwo82.5cm/s MV E Mean Gr.2mmHgE/A Ratio1.0 TDI Lateral E' P. V11.01cm/sE/Lateral E'8.8 Tricuspid Valve TR P. Kitjedfz265ue/sTR Peak Gr.32mmHg LEFT VENTRICLE The Left Ventricle is mildly dilated. There is normal left ventricular wall thickness. The left ventr icular systolic function is normal. The ejection fraction is 55-60%. There is normal LV segmental wal l motion. The left ventricular diastolic function and filling is normal for age. No left ventricle th rombus noted on this study. There is no ventricular septal defect visualized. RIGHT VENTRICLE The right ventricle is mildly dilated. There is normal right ventricular wall thickness. The right ve ntricular systolic function is normal. ATRIA The left atrium is mildly dilated. The right atrium size is normal. The interatrial septum is intact with no evidence for an atrial septal defect or patent foramen ovale as noted on 2-D or Doppler imagi ng. AORTIC VALVE The aortic valve is normal in structure and function. Doppler and Color Flow revealed no significant aortic regurgitation. There is no significant aortic valvular stenosis. There is no aortic valvular v egetation. MITRAL VALVE The mitral valve is normal in structure and function. There is no evidence of mitral valve prolapse. There is no mitral valve stenosis. Doppler and Color-flow revealed trace mitral regurgitation. TRICUSPID VALVE The tricuspid valve is normal in structure and function. Doppler and Color Flow revealed trace tricus pid regurgitation. There is no tricuspid valve prolapse or vegetation. There is no tricuspid valve st enosis. PULMONIC VALVE The pulmonary valve is normal in structure and function. Doppler and Color Flow revealed no pulmonic valvular regurgitation. There is no pulmonic valvular stenosis. GREAT VESSELS The aortic root is normal in size. The ascending aorta is normal in size. The pulmonary artery is nor mal. The IVC is normal in size and collapses >50% with inspiration. PERICARDIAL EFFUSION There is no pleural effusion. There is no evidence of significant pericardial effusion. Critical Notification Critical Value: No <Conclusion> The left ventricular systolic function is normal. The ejection fraction is 55-60%. There is normal LV segmental wall motion. Trace mitral regurgitation. Trace tricuspid regurgitation. There is no evidence of significant pericardial effusion. Signed by : Sonny Mendez, Electronically Approved : 03/20/2021 13:23:37
--- NOTE | 2021-03-20 14:37 | NUR ---
SS following up with discharge planning. SS reviewed pt chart and discussed with pt RN. Pt is currently requiring oxygen at four liters nasal canula. Pt on IV Rocephin. Pt has home oxygen. Pt transferred to room 208. Possible discharge to home this weekend once medically ready. SS will continue to follow for discharge planning.
[2021-03-20] MEDS: GABAPENTIN 300 MG CAPSULE. PO SCH ×2 (16:14→20:43)
[2021-03-20] MEDS: cefTRIAXone IV Push 1 GM VIAL. IVP SCH (16:15)
[2021-03-21] MEDS: IPRATRPIUM/ALBUTEROL 0.5/2.5MG 3 ML NEBU. NEB SCH ×6 (00:22→20:46)
[2021-03-21] MEDS: methylPREDNISolone SOD SUCC PF 125 MG/2 ML VIAL. IV SCH ×4 (02:04→17:50)
[2021-03-21 04:30] VITALS: BP 130/87
[2021-03-21 07:00] VITALS: BP 132/75
[2021-03-21] MEDS: POTASSIUM CHLORIDE 20 MEQ TABLET.ER. PO SCH (07:42)
[2021-03-21] MEDS: LACTOBACILLUS RHAMNOSUS GG 1 CAPSULE. PO SCH ×2 (07:42→21:48)
[2021-03-21] MEDS: GABAPENTIN 300 MG CAPSULE. PO SCH ×3 (07:42→21:48)
[2021-03-21] MEDS: LISINOPRIL 5 MG TABLET. PO SCH (07:43)
[2021-03-21] MEDS: METOPROLOL SUCC 24HR ER 25 MG TAB.ER.24H. PO SCH (07:43)
[2021-03-21] MEDS: FUROSEMIDE 40 MG TABLET. PO SCH (07:43)
[2021-03-21] MEDS: DOXYCYCLINE HYCLATE 100 MG TABLET PO SCH ×2 (07:43→21:48)
[2021-03-21 11:00] VITALS: BP 126/84
[2021-03-21] MEDS: ENOXAPARIN 40 MG/0.4 ML SYRINGE. SQ SCH ×2 (11:54→11:59)
--- NOTE | 2021-03-21 12:58 | PDOC ---
GENERAL General: Patient examined chart reviewed today is hospital day 4 for this patient with a cute on chronic hypercapnic and hypoxic respiratory failure secondary to COPD. Patient is dependent on oxygen at home running in 3 to 4 L continuously. 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 He is working on quitting. We appreciate zelalem deluca support. Hoping for arrangement for trilogy on discharge. We will defer to pulmonary regarding the timing of discharge. At this point he is feeling fairly close to his baseline. Time spent today is 30 minutes with greater than 50% in counseling and coordination of care most of which in discussion with patient. Problems: (1) COPD exacerbation (2) Acute and chronic respiratory failure with hypercapnia VITAL SIGNS Vital Signs/I&O: Vital Signs Date Time Temp Pulse Resp B/P (MAP) Pulse Ox O2 Delivery O2 Flow Rate FiO2 03/21/21 11:39 Nasal Cannula 4.0 03/21/21 11:00 97.6 86 18 126/84 (98) 87 97.6 I & O 03/20/21 03/20/21 03/21/21 15:00 23:00 07:00 Intake Total 960 ml 360 ml 120 ml Output Total 1400 ml 950 ml 600 ml Balance -440 ml -590 ml -480 ml In general the patient is pleasant alert and oriented x3 no acute distress HEENT exam is unremarkable for acute abnormality Chest bilateral equal air entry though diminished throughout inspiratory and expiratory faint wheezes noted at the bilateral bases Heart S1-S2 normal regular rate and rhythm no murmurs or gallops are noted Abdomen is obese soft nontender nondistended no masses organomegaly noted Extremity exam is notable for chronic venous stasis dermatitis, onychomycosis and tinea pedis bilaterally. Pulses are intact throughout ALLERGIES Allergies: Allergies Coded Allergies Type Severity Reaction Last Updated Verified No Known Drug Allergies 07/19/14 No MEDS Medications: Current Medications Medications (Trade) Dose Ordered Sig/Cole Route PRN Reason Start Time Stop Time Status Last Admin Dose Admin Gabapentin (Neurontin) 300 mg HS PO 03/20/21 21:00 03/20/21 20:43 Gabapentin (Neurontin) 900 mg BID@0900,1700 PO 03/20/21 17:00 03/21/21 07:42 Current Medications Medications (Trade) Dose Ordered Sig/Cole Start Time Stop Time Status Last Admin Dose Admin Acetaminophen (Tylenol) 650 mg PRN Q6HRS PRN 03/19/21 11:15 Acetaminophen/ Hydrocodone Bitart (Lortab 5/325) 1 tab PRN Q4HRS PRN 03/19/21 11:15 Al Hydroxide/Mg Hydroxide (Mylanta Plus Xs) 30 ml PRN Q3HRS PRN 03/19/21 11:15 Albuterol/ Ipratropium (Duoneb) 3 ml Q4HRS 03/19/21 00:00 03/21/21 11:38 Calcium Carbonate/ Glycine (Tums) 500 mg PRN Q3HRS PRN 03/19/21 11:15 Ceftriaxone Sodium (Rocephin) 1 gm Q24H 03/19/21 16:00 03/20/21 16:15 Doxycycline Hyclate (Vibra-Tab) 100 mg BID 03/19/21 09:00 03/21/21 07:43 Enoxaparin Sodium (Lovenox 40mg Syringe) 40 mg Q24H 03/19/21 12:00 03/19/21 14:11 Furosemide (Lasix) 40 mg DAILY 03/19/21 12:00 03/19/21 14:04 DC Gabapentin (Neurontin) 900 mg BID@0900,1700 03/20/21 17:00 03/21/21 07:42 Info (CONTRAST GIVEN -- Rx MONITORING) 1 each PRN DAILY PRN 03/18/21 17:00 03/20/21 16:59 DC Lactobacillus Rhamnosus (Culturelle) 1 cap BID 03/19/21 21:00 03/21/21 07:42 Lisinopril (Prinivil) 2.5 mg DAILY 03/19/21 09:00 03/21/21 07:43 Lorazepam (Ativan) 1 mg PRN Q6HRS PRN 03/19/21 11:15 Magnesium Hydroxide (Milk Of Magnesia) 2,400 mg PRN Q12HR PRN 03/19/21 11:15 Methylprednisolone Sodium Succinate (SOLU-Medrol 125MG VIAL) 65 mg Q6HRS 03/19/21 12:00 03/21/21 11:54 Metoprolol Succinate (Toprol Xl) 25 mg DAILY 03/19/21 12:00 03/21/21 07:43 Morphine Sulfate (Morphine Sulfate) 2 mg PRN Q1HR PRN 03/19/21 11:15 Non-Formulary Medication (Lisinopril ) 1 tab DAILY 03/20/21 09:00 03/19/21 10:57 DC Ondansetron HCl (Zofran) 4 mg PRN Q6HRS PRN 03/19/21 11:15 Potassium Chloride (Klor-Con) 20 meq DAILY 03/19/21 12:00 03/21/21 07:42 Sodium Chloride 500 ml @ 25 mls/hr PRN DAILY 03/19/21 11:30 Sodium Chloride (Normal Saline Flush) 3 ml QSHIFT PRN 03/19/21 11:15 ASSESSMENT & PLAN A&P Plan as noted above This note was created using [employer] and may have omissions and/or errors due to 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 Justifications for Admission Other Justification Acute respiratory failure with hypoxia, COPD, CHF ESTEBAN WILSON MD Mar 21, 2021 12:58
--- NOTE | 2021-03-21 14:07 | PDOC ---
PULMONARY PROGRESS NOTES DATE: 03/21/21 TIME: 14:04 Subjective Remains on 4 liters NC No increased SOB or Cough no overnight events Vitals Vital Signs Date Time Temp Pulse Resp B/P (MAP) Pulse Ox O2 Delivery O2 Flow Rate FiO2 03/21/21 11:39 Nasal Cannula 4.0 03/21/21 11:00 97.6 86 18 126/84 (98) 87 97.6 ROS: No Nausea, No Chest Pain, No Abdominal Pain General: Alert, Oriented X4 Lungs: Crackles Cardiovascular: S1, S2 Abdomen: Soft, Other Extremities: Other Medications Active Scripts Medications Dose Route/Sig Max Daily Dose Days Date Category Lasix (Furosemide) 40 Mg Tablet 1 Tab PO DAILY 30 03/18/21 Reported Lisinopril 2.5 Mg Tablet 1 Tab PO DAILY 03/18/21 Reported Klor-Con M20 (Potassium Chloride) 20 Meq Tab.er.prt 1 Tab PO DAILY 30 03/18/21 Reported Gabapentin (Gabapentin) 300 Mg Capsule 300 Mg PO 5XDAY 03/18/21 Reported Metoprolol Succinate ( Xl ) (Metoprolol Succinate) 25 Mg Tab.er.24h 1 Tab PO DAILY 03/18/21 Reported Impression . IMPRESSION: 1. Acute on chronic hypoxemic hypercapnic respiratory failure.--improved 2. Acute exacerbation of chronic obstructive pulmonary disease. 3. Acute on chronic cor pulmonale. 4. Obstructive sleep apnea, patient claims he is having some difficulty with his CPAP machine lately. 5. Polycythemia secondary to chronic hypoxemia. 6. Acute on chronic diastolic heart failure. 7. Coronary artery disease. 8. Morbid obesity. 9. Hypertension. 10. Tobacco dependent. 11. Alcoholism. Plan . PLAN: Continue supplemental oxygen to keep sats above 90%, currently on 4 liters NC, baseline oxygen requirement is 3 liters NC BIPAP at HS and PRN, Follow cardiology recs- EF 55-60%, cont. diuresis CT reviewed no PE Monitor for alcohol withdrawal Continue steroids with taper Continue ABX, on Rocephin Social work for DC planning for DC tuesday with Trilogy DVT/GI PPX D/W RN and PT DEO DUENAS MD Mar 21, 2021 14:07
[2021-03-21 15:00] VITALS: BP 139/94
[2021-03-21] MEDS: cefTRIAXone IV Push 1 GM VIAL. IVP SCH (17:50)
[2021-03-21 19:28] VITALS: BP 140/83
[2021-03-21 22:13] VITALS: BP 145/92
[2021-03-22] MEDS: methylPREDNISolone SOD SUCC PF 125 MG/2 ML VIAL. IV SCH ×5 (00:05→23:38)
[2021-03-22 02:24] VITALS: BP 145/97
[2021-03-22] MEDS: IPRATRPIUM/ALBUTEROL 0.5/2.5MG 3 ML NEBU. NEB SCH ×6 (03:15→20:29)
[2021-03-22 04:16] LABS: BASO % 0 % (0-3); EOS % 0 % (0-3); HEMATOCRIT 58.5 % (39.0-53.0); HEMOGLOBIN 18.6 g/dL (13.0-17.5); LYMPH # 0.3 x10^3/uL (1.0-4.8); LYMPH % 3 % (24-48); MEAN CORPUSCULAR HEMOGLOBIN 31 pg (25-35); MEAN CORPUSCULAR HGB CONC 32 g/dL (31-37); MEAN CORPUSCULAR VOLUME 96 fL (79-100); MONO # 0.5 x10^3/uL (0.0-1.1); MONO % 5 % (0-9); NEUT # 10.9 x10^3/uL (1.8-7.7); NEUT % 93 % (31-73); PLATELET COUNT 131 x10^3/uL (140-400); RED CELL DISTRIBUTION WIDTH 16.7 % (11.5-14.5); WHITE BLOOD COUNT 11.7 x10^3/uL (4.0-11.0)
[2021-03-22 04:41] LABS: ALBUMIN 3.4 g/dL (3.4-5.0); CALCIUM 8.7 mg/dL (8.5-10.1); GFR 76.5; POTASSIUM 4.3 mmol/L (3.5-5.1); TOTAL BILIRUBIN 0.6 mg/dL (0.2-1.0); TOTAL PROTEIN 6.8 g/dL (6.4-8.2)
[2021-03-22 07:00] VITALS: BP 123/77
--- NOTE | 2021-03-22 07:57 | PDOC ---
PULMONARY PROGRESS NOTES DATE: 03/22/21 TIME: 07:56 Subjective Patient remains on 4 L nasal cannula Reports cough with sputum production Denies shortness of breath No overnight concerns, afebrile Vitals Vital Signs Date Time Temp Pulse Resp B/P (MAP) Pulse Ox O2 Delivery O2 Flow Rate FiO2 03/22/21 07:44 90 Nasal Cannula 4.0 03/22/21 02:24 97.6 98 22 145/97 (113) 97.6 ROS: No Nausea, No Chest Pain, No Abdominal Pain General: Alert, Oriented X4 Lungs: Crackles Cardiovascular: S1, S2 Abdomen: Soft, Other Extremities: Other (+3 bilateral lower extremity pitting edema) Labs Laboratory Tests Test 03/22/21 04:00 White Blood Count 11.7 x10^3/uL (4.0-11.0) Red Blood Count 6.10 x10^6/uL (4.30-5.70) Hemoglobin 18.6 g/dL (13.0-17.5) Hematocrit 58.5 % (39.0-53.0) Mean Corpuscular Volume 96 fL (79-100) Mean Corpuscular Hemoglobin 31 pg (25-35) Mean Corpuscular Hemoglobin Concent 32 g/dL (31-37) Red Cell Distribution Width 16.7 % (11.5-14.5) Platelet Count 131 x10^3/uL (140-400) Neutrophils (%) (Auto) 93 % (31-73) Lymphocytes (%) (Auto) 3 % (24-48) Monocytes (%) (Auto) 5 % (0-9) Eosinophils (%) (Auto) 0 % (0-3) Basophils (%) (Auto) 0 % (0-3) Neutrophils # (Auto) 10.9 x10^3/uL (1.8-7.7) Lymphocytes # (Auto) 0.3 x10^3/uL (1.0-4.8) Monocytes # (Auto) 0.5 x10^3/uL (0.0-1.1) Eosinophils # (Auto) 0.0 x10^3/uL (0.0-0.7) Basophils # (Auto) 0.0 x10^3/uL (0.0-0.2) Sodium Level 143 mmol/L (136-145) Potassium Level 4.3 mmol/L (3.5-5.1) Chloride Level 104 mmol/L (98-107) Carbon Dioxide Level 34 mmol/L (21-32) Anion Gap 5 (6-14) Blood Urea Nitrogen 24 mg/dL (8-26) Creatinine 1.0 mg/dL (0.7-1.3) Estimated GFR (Cockcroft-Gault) 76.5 BUN/Creatinine Ratio 24 (6-20) Glucose Level 167 mg/dL (70-99) Calcium Level 8.7 mg/dL (8.5-10.1) Total Bilirubin 0.6 mg/dL (0.2-1.0) Aspartate Amino Transf (AST/SGOT) 17 U/L (15-37) Alanine Aminotransferase (ALT/SGPT) 26 U/L (16-63) Alkaline Phosphatase 55 U/L (46-116) Total Protein 6.8 g/dL (6.4-8.2) Albumin 3.4 g/dL (3.4-5.0) Albumin/Globulin Ratio 1.0 (1.0-1.7) Laboratory Tests Test 03/22/21 04:00 White Blood Count 11.7 x10^3/uL (4.0-11.0) Red Blood Count 6.10 x10^6/uL (4.30-5.70) Hemoglobin 18.6 g/dL (13.0-17.5) Hematocrit 58.5 % (39.0-53.0) Mean Corpuscular Volume 96 fL (79-100) Mean Corpuscular Hemoglobin 31 pg (25-35) Mean Corpuscular Hemoglobin Concent 32 g/dL (31-37) Red Cell Distribution Width 16.7 % (11.5-14.5) Platelet Count 131 x10^3/uL (140-400) Neutrophils (%) (Auto) 93 % (31-73) Lymphocytes (%) (Auto) 3 % (24-48) Monocytes (%) (Auto) 5 % (0-9) Eosinophils (%) (Auto) 0 % (0-3) Basophils (%) (Auto) 0 % (0-3) Neutrophils # (Auto) 10.9 x10^3/uL (1.8-7.7) Lymphocytes # (Auto) 0.3 x10^3/uL (1.0-4.8) Monocytes # (Auto) 0.5 x10^3/uL (0.0-1.1) Eosinophils # (Auto) 0.0 x10^3/uL (0.0-0.7) Basophils # (Auto) 0.0 x10^3/uL (0.0-0.2) Sodium Level 143 mmol/L (136-145) Potassium Level 4.3 mmol/L (3.5-5.1) Chloride Level 104 mmol/L (98-107) Carbon Dioxide Level 34 mmol/L (21-32) Anion Gap 5 (6-14) Blood Urea Nitrogen 24 mg/dL (8-26) Creatinine 1.0 mg/dL (0.7-1.3) Estimated GFR (Cockcroft-Gault) 76.5 BUN/Creatinine Ratio 24 (6-20) Glucose Level 167 mg/dL (70-99) Calcium Level 8.7 mg/dL (8.5-10.1) Total Bilirubin 0.6 mg/dL (0.2-1.0) Aspartate Amino Transf (AST/SGOT) 17 U/L (15-37) Alanine Aminotransferase (ALT/SGPT) 26 U/L (16-63) Alkaline Phosphatase 55 U/L (46-116) Total Protein 6.8 g/dL (6.4-8.2) Albumin 3.4 g/dL (3.4-5.0) Albumin/Globulin Ratio 1.0 (1.0-1.7) Medications Active Scripts Medications Dose Route/Sig Max Daily Dose Days Date Category Lasix (Furosemide) 40 Mg Tablet 1 Tab PO DAILY 03/18/21 Reported Lisinopril 2.5 Mg Tablet 1 Tab PO DAILY 03/18/21 Reported Klor-Con M20 (Potassium Chloride) 20 Meq Tab.er.prt 1 Tab PO DAILY 30 03/18/21 Reported Gabapentin (Gabapentin) 300 Mg Capsule 300 Mg PO 5XDAY 03/18/21 Reported Metoprolol Succinate ( Xl ) (Metoprolol Succinate) 25 Mg Tab.er.24h 1 Tab PO DAILY 03/18/21 Reported Comments CXR Impression: 1. Decreased patchy mid and bibasilar opacities. 2. Small right pleural effusion, unchanged. Impression . IMPRESSION: 1. Acute on chronic hypoxemic hypercapnic respiratory failure.--improved 2. Acute exacerbation of chronic obstructive pulmonary disease. 3. Acute on chronic cor pulmonale. 4. Obstructive sleep apnea, patient claims he is having some difficulty with his CPAP machine lately. 5. Polycythemia secondary to chronic hypoxemia. 6. Acute on chronic diastolic heart failure. 7. Coronary artery disease. 8. Morbid obesity. 9. Hypertension. 10. Tobacco dependent. 11. Alcoholism. Plan . Updated 03/22/2021 Continue supplemental oxygen to keep sats above 90%, currently on 4 liters NC, baseline oxygen requirement is 3 liters NC BIPAP at HS and PRN, Follow cardiology recs- EF 55-60%, cont. diuresis CT reviewed no PE Monitor for alcohol withdrawal Continue steroids with taper, will change to p.o. today Continue ABX, on Rocephin and doxy Social work for DC planning for DC tuesday with Trilogy DVT/GI PPX: Lovenox D/W RN and PT PLAN: 03/21/2021 Continue supplemental oxygen to keep sats above 90%, currently on 4 liters NC, baseline oxygen requirement is 3 liters NC BIPAP at HS and PRN, Follow cardiology recs- EF 55-60%, cont. diuresis CT reviewed no PE Monitor for alcohol withdrawal Continue steroids with taper Continue ABX, on Rocephin Social work for DC planning for DC tuesday with Trilogy DVT/GI PPX D/W RN and PT DEO DUENAS MD Mar 22, 2021 07:57
[2021-03-22] MEDS: DOXYCYCLINE HYCLATE 100 MG TABLET PO SCH ×2 (09:01→20:36)
[2021-03-22] MEDS: LACTOBACILLUS RHAMNOSUS GG 1 CAPSULE. PO SCH ×2 (09:01→20:36)
[2021-03-22] MEDS: METOPROLOL SUCC 24HR ER 25 MG TAB.ER.24H. PO SCH (09:01)
[2021-03-22] MEDS: LISINOPRIL 5 MG TABLET. PO SCH (09:02)
[2021-03-22] MEDS: FUROSEMIDE 40 MG TABLET. PO SCH (09:02)
[2021-03-22] MEDS: GABAPENTIN 300 MG CAPSULE. PO SCH ×3 (09:02→20:36)
[2021-03-22] MEDS: POTASSIUM CHLORIDE 20 MEQ TABLET.ER. PO SCH (09:02)
[2021-03-22 11:00] VITALS: BP 134/72
[2021-03-22] MEDS: ENOXAPARIN 40 MG/0.4 ML SYRINGE. SQ SCH (12:00)
--- NOTE | 2021-03-22 14:17 | PDOC ---
GENERAL General: Patient examined chart reviewed no events overnight noted. He is in good spirits this afternoon. Tells me he feels like he is fairly close to his valarie jo. Sounds like we are planning on discharge tomorrow with Trilogy. Appreciate pulmonary support. Problems: (1) COPD exacerbation (2) Acute and chronic respiratory failure with hypercapnia VITAL SIGNS Vital Signs/I&O: Vital Signs Date Time Temp Pulse Resp B/P (MAP) Pulse Ox O2 Delivery O2 Flow Rate FiO2 03/22/21 11:48 Nasal Cannula 4.0 03/22/21 11:00 98.0 94 20 134/72 (92) 89 98.0 I & O 0 03/21/21 03/21/21 03/22/21 15:00 23:00 07:00 Intake Total 300 ml 480 ml 1400 ml Output Total 200 ml 300 ml 675 ml Balance 100 ml 180 ml 725 ml In general patient is pleasant alert and oriented x3 no acute distress Chest bilateral equal air entry though diminished throughout no crackles or wheezes are noted Heart S1-S2 normal regular rate and rhythm no murmurs or gallops are noted Abdomen soft nontender nondistended no masses organomegaly noted Extremity exam is unremarkable for acute abnormality and unchanged from prior ALLERGIES Allergies: Allergies Coded Allergies Type Severity Reaction Last Updated Verified No Known Drug Allergies 07/19/14 No MEDS Medications: Current Medications Medications (Trade) Dose Ordered Sig/Cole Start Time Stop Time Status Last Admin Dose Admin Acetaminophen (Tylenol) 650 mg PRN Q6HRS PRN 03/19/21 11:15 Acetaminophen/ Hydrocodone Bitart (Lortab 5/325) 1 tab PRN Q4HRS PRN 03/19/21 11:15 Al Hydroxide/Mg Hydroxide (Mylanta Plus Xs) 30 ml PRN Q3HRS PRN 03/19/21 11:15 Albuterol/ Ipratropium (Duoneb) 3 ml Q4HRS 03/19/21 00:00 03/22/21 11:47 Calcium Carbonate/ Glycine (Tums) 500 mg PRN Q3HRS PRN 03/19/21 11:15 Ceftriaxone Sodium (Rocephin) 1 gm Q24H 03/19/21 16:00 03/21/21 17:50 Doxycycline Hyclate (Vibra-Tab) 100 mg BID 03/19/21 09:00 03/22/21 09:01 Enoxaparin Sodium (Lovenox 40mg Syringe) 40 mg Q24H 03/19/21 12:00 03/19/21 14:11 Furosemide (Lasix) 40 mg DAILY 03/19/21 12:00 03/19/21 14:04 DC Gabapentin (Neurontin) 900 mg BID@0900,1700 03/20/21 17:00 03/22/21 09:02 Info (CONTRAST GIVEN -- Rx MONITORING) 1 each PRN DAILY PRN 03/18/21 17:00 03/20/21 16:59 DC Lactobacillus Rhamnosus (Culturelle) 1 cap BID 03/19/21 21:00 03/22/21 09:01 Lisinopril (Prinivil) 2.5 mg DAILY 03/19/21 09:00 03/22/21 09:02 Lorazepam (Ativan) 1 mg PRN Q6HRS PRN 03/19/21 11:15 Magnesium Hydroxide (Milk Of Magnesia) 2,400 mg PRN Q12HR PRN 03/19/21 11:15 Methylprednisolone Sodium Succinate (SOLU-Medrol 125MG VIAL) 65 mg Q6HRS 03/19/21 12:00 03/22/21 12:09 Metoprolol Succinate (Toprol Xl) 25 mg DAILY 03/19/21 12:00 03/22/21 09:01 Morphine Sulfate (Morphine Sulfate) 2 mg PRN Q1HR PRN 03/19/21 11:15 Non-Formulary Medication (Lisinopril ) 1 tab DAILY 03/20/21 09:00 03/19/21 10:57 DC Ondansetron HCl (Zofran) 4 mg PRN Q6HRS PRN 03/19/21 11:15 Potassium Chloride (Klor-Con) 20 meq DAILY 03/19/21 12:00 03/22/21 09:02 Sodium Chloride 500 ml @ 25 mls/hr PRN DAILY 03/19/21 11:30 Sodium Chloride (Normal Saline Flush) 3 ml QSHIFT PRN 03/19/21 11:15 LAB Lab: Laboratory Tests Test 03/22/21 04:00 White Blood Count 11.7 x10^3/uL (4.0-11.0) H Red Blood Count 6.10 x10^6/uL (4.30-5.70) H Hemoglobin 18.6 g/dL (13.0-17.5) H Hematocrit 58.5 % (39.0-53.0) H Mean Corpuscular Volume 96 fL (79-100) Mean Corpuscular Hemoglobin 31 pg (25-35) Mean Corpuscular Hemoglobin Concent 32 g/dL (31-37) Red Cell Distribution Width 16.7 % (11.5-14.5) H Platelet Count 131 x10^3/uL (140-400) L Neutrophils (%) (Auto) 93 % (31-73) H Lymphocytes (%) (Auto) 3 % (24-48) L Monocytes (%) (Auto) 5 % (0-9) Eosinophils (%) (Auto) 0 % (0-3) Basophils (%) (Auto) 0 % (0-3) Neutrophils # (Auto) 10.9 x10^3/uL (1.8-7.7) H Lymphocytes # (Auto) 0.3 x10^3/uL (1.0-4.8) L Monocytes # (Auto) 0.5 x10^3/uL (0.0-1.1) Eosinophils # (Auto) 0.0 x10^3/uL (0.0-0.7) Basophils # (Auto) 0.0 x10^3/uL (0.0-0.2) Sodium Level 143 mmol/L (136-145) Potassium Level 4.3 mmol/L (3.5-5.1) Chloride Level 104 mmol/L (98-107) Carbon Dioxide Level 34 mmol/L (21-32) H Anion Gap 5 (6-14) L Blood Urea Nitrogen 24 mg/dL (8-26) Creatinine 1.0 mg/dL (0.7-1.3) Estimated GFR (Cockcroft-Gault) 76.5 BUN/Creatinine Ratio 24 (6-20) H Glucose Level 167 mg/dL (70-99) H Calcium Level 8.7 mg/dL (8.5-10.1) Total Bilirubin 0.6 mg/dL (0.2-1.0) Aspartate Amino Transferase (AST) 17 U/L (15-37) Alanine Aminotransferase (ALT) 26 U/L (16-63) Alkaline Phosphatase 55 U/L (46-116) Total Protein 6.8 g/dL (6.4-8.2) Albumin 3.4 g/dL (3.4-5.0) Albumin/Globulin Ratio 1.0 (1.0-1.7) Laboratory Tests 03/22/21 04:00 Laboratory Tests 03/22/21 04:00 ASSESSMENT & PLAN A&P Plan as noted above This note was created using [employer] and may have omissions and/or errors due to the nature of real-time voice sausage maker. Justifications for Admission Other Justification Acute respiratory failure with hypoxia, COPD, CHF ESTEBAN WILSON MD Mar 22, 2021 14:17
[2021-03-22 15:00] VITALS: BP 168/90
[2021-03-22] MEDS: cefTRIAXone IV Push 1 GM VIAL. IVP SCH (16:58)
[2021-03-22 19:35] VITALS: BP 155/82
[2021-03-22 23:10] VITALS: BP 146/84
[2021-03-23 03:10] VITALS: BP 152/83
[2021-03-23] MEDS: IPRATRPIUM/ALBUTEROL 0.5/2.5MG 3 ML NEBU. NEB SCH ×4 (04:00→11:20)
[2021-03-23] MEDS: methylPREDNISolone SOD SUCC PF 125 MG/2 ML VIAL. IV SCH ×2 (05:32→12:00)
[2021-03-23 07:00] VITALS: BP 139/86
[2021-03-23 07:21] LABS: BASO % 0 % (0-3); EOS % 0 % (0-3); HEMATOCRIT 57.3 % (39.0-53.0); HEMOGLOBIN 18.3 g/dL (13.0-17.5); LYMPH # 0.2 x10^3/uL (1.0-4.8); LYMPH % 2 % (24-48); MEAN CORPUSCULAR HEMOGLOBIN 31 pg (25-35); MEAN CORPUSCULAR HGB CONC 32 g/dL (31-37); MEAN CORPUSCULAR VOLUME 96 fL (79-100); MONO # 0.4 x10^3/uL (0.0-1.1); MONO % 4 % (0-9); NEUT # 9.8 x10^3/uL (1.8-7.7); NEUT % 95 % (31-73); PLATELET COUNT 120 x10^3/uL (140-400); RED BLOOD COUNT 5.96 x10^6/uL (4.30-5.70); RED CELL DISTRIBUTION WIDTH 16.7 % (11.5-14.5); WHITE BLOOD COUNT 10.4 x10^3/uL (4.0-11.0)
[2021-03-23 07:29] LABS: ALBUMIN 3.4 g/dL (3.4-5.0); ALBUMIN/GLOBULIN RATIO 1.1 (1.0-1.7); CALCIUM 8.5 mg/dL (8.5-10.1); GFR 76.5; POTASSIUM 4.2 mmol/L (3.5-5.1); TOTAL BILIRUBIN 0.8 mg/dL (0.2-1.0); TOTAL PROTEIN 6.6 g/dL (6.4-8.2)
[2021-03-23] MEDS: METOPROLOL SUCC 24HR ER 25 MG TAB.ER.24H. PO SCH (08:54)
[2021-03-23] MEDS: FUROSEMIDE 40 MG TABLET. PO SCH (08:55)
[2021-03-23] MEDS: LACTOBACILLUS RHAMNOSUS GG 1 CAPSULE. PO SCH (08:55)
[2021-03-23] MEDS: DOXYCYCLINE HYCLATE 100 MG TABLET PO SCH (08:55)
[2021-03-23] MEDS: POTASSIUM CHLORIDE 20 MEQ TABLET.ER. PO SCH (08:55)
[2021-03-23] MEDS: LISINOPRIL 5 MG TABLET. PO SCH (08:56)
[2021-03-23] MEDS: GABAPENTIN 300 MG CAPSULE. PO SCH (08:56)
--- NOTE | 2021-03-23 10:07 | PDOC ---
PULMONARY PROGRESS NOTES DATE: 03/23/21 TIME: 10:07 Subjective Patient remains on 4 L nasal cannula Reports cough with sputum production Denies shortness of breath No overnight concerns, afebrile Vitals Vital Signs Date Time Temp Pulse Resp B/P (MAP) Pulse Ox O2 Delivery O2 Flow Rate FiO2 03/23/21 08:56 90 03/23/21 07:52 89 Nasal Cannula 4.0 03/23/21 07:00 97.9 16 139/86 (103) 97.9 ROS: No Nausea, No Chest Pain, No Abdominal Pain General: Alert, Oriented X4 Lungs: Crackles Cardiovascular: S1, S2 Abdomen: Soft, Other Extremities: Other (+3 bilateral lower extremity pitting edema) Labs Laboratory Tests Test 03/22/21 04:00 03/23/21 06:05 White Blood Count 11.7 x10^3/uL (4.0-11.0) 10.4 x10^3/uL (4.0-11.0) Red Blood Count 6.10 x10^6/uL (4.30-5.70) 5.96 x10^6/uL (4.30-5.70) Hemoglobin 18.6 g/dL (13.0-17.5) 18.3 g/dL (13.0-17.5) Hematocrit 58.5 % (39.0-53.0) 57.3 % (39.0-53.0) Mean Corpuscular Volume 96 fL (79-100) 96 fL (79-100) Mean Corpuscular Hemoglobin 31 pg (25-35) 31 pg (25-35) Mean Corpuscular Hemoglobin Concent 32 g/dL (31-37) 32 g/dL (31-37) Red Cell Distribution Width 16.7 % (11.5-14.5) 16.7 % (11.5-14.5) Platelet Count 131 x10^3/uL (140-400) 120 x10^3/uL (140-400) Neutrophils (%) (Auto) 93 % (31-73) 95 % (31-73) Lymphocytes (%) (Auto) 3 % (24-48) 2 % (24-48) Monocytes (%) (Auto) 5 % (0-9) 4 % (0-9) Eosinophils (%) (Auto) 0 % (0-3) 0 % (0-3) Basophils (%) (Auto) 0 % (0-3) 0 % (0-3) Neutrophils # (Auto) 10.9 x10^3/uL (1.8-7.7) 9.8 x10^3/uL (1.8-7.7) Lymphocytes # (Auto) 0.3 x10^3/uL (1.0-4.8) 0.2 x10^3/uL (1.0-4.8) Monocytes # (Auto) 0.5 x10^3/uL (0.0-1.1) 0.4 x10^3/uL (0.0-1.1) Eosinophils # (Auto) 0.0 x10^3/uL (0.0-0.7) 0.0 x10^3/uL (0.0-0.7) Basophils # (Auto) 0.0 x10^3/uL (0.0-0.2) 0.0 x10^3/uL (0.0-0.2) Sodium Level 143 mmol/L (136-145) 145 mmol/L (136-145) Potassium Level 4.3 mmol/L (3.5-5.1) 4.2 mmol/L (3.5-5.1) Chloride Level 104 mmol/L (98-107) 103 mmol/L (98-107) Carbon Dioxide Level 34 mmol/L (21-32) 36 mmol/L (21-32) Anion Gap 5 (6-14) 6 (6-14) Blood Urea Nitrogen 24 mg/dL (8-26) 20 mg/dL (8-26) Creatinine 1.0 mg/dL (0.7-1.3) 1.0 mg/dL (0.7-1.3) Estimated GFR (Cockcroft-Gault) 76.5 76.5 BUN/Creatinine Ratio 24 (6-20) 20 (6-20) Glucose Level 167 mg/dL (70-99) 173 mg/dL (70-99) Calcium Level 8.7 mg/dL (8.5-10.1) 8.5 mg/dL (8.5-10.1) Total Bilirubin 0.6 mg/dL (0.2-1.0) 0.8 mg/dL (0.2-1.0) Aspartate Amino Transf (AST/SGOT) 17 U/L (15-37) 13 U/L (15-37) Alanine Aminotransferase (ALT/SGPT) 26 U/L (16-63) 23 U/L (16-63) Alkaline Phosphatase 55 U/L (46-116) 53 U/L (46-116) Total Protein 6.8 g/dL (6.4-8.2) 6.6 g/dL (6.4-8.2) Albumin 3.4 g/dL (3.4-5.0) 3.4 g/dL (3.4-5.0) Albumin/Globulin Ratio 1.0 (1.0-1.7) 1.1 (1.0-1.7) Laboratory Tests Test 03/23/21 06:05 White Blood Count 10.4 x10^3/uL (4.0-11.0) Red Blood Count 5.96 x10^6/uL (4.30-5.70) Hemoglobin 18.3 g/dL (13.0-17.5) Hematocrit 57.3 % (39.0-53.0) Mean Corpuscular Volume 96 fL (79-100) Mean Corpuscular Hemoglobin 31 pg (25-35) Mean Corpuscular Hemoglobin Concent 32 g/dL (31-37) Red Cell Distribution Width 16.7 % (11.5-14.5) Platelet Count 120 x10^3/uL (140-400) Neutrophils (%) (Auto) 95 % (31-73) Lymphocytes (%) (Auto) 2 % (24-48) Monocytes (%) (Auto) 4 % (0-9) Eosinophils (%) (Auto) 0 % (0-3) Basophils (%) (Auto) 0 % (0-3) Neutrophils # (Auto) 9.8 x10^3/uL (1.8-7.7) Lymphocytes # (Auto) 0.2 x10^3/uL (1.0-4.8) Monocytes # (Auto) 0.4 x10^3/uL (0.0-1.1) Eosinophils # (Auto) 0.0 x10^3/uL (0.0-0.7) Basophils # (Auto) 0.0 x10^3/uL (0.0-0.2) Sodium Level 145 mmol/L (136-145) Potassium Level 4.2 mmol/L (3.5-5.1) Chloride Level 103 mmol/L (98-107) Carbon Dioxide Level 36 mmol/L (21-32) Anion Gap 6 (6-14) Blood Urea Nitrogen 20 mg/dL (8-26) Creatinine 1.0 mg/dL (0.7-1.3) Estimated GFR (Cockcroft-Gault) 76.5 BUN/Creatinine Ratio 20 (6-20) Glucose Level 173 mg/dL (70-99) Calcium Level 8.5 mg/dL (8.5-10.1) Total Bilirubin 0.8 mg/dL (0.2-1.0) Aspartate Amino Transf (AST/SGOT) 13 U/L (15-37) Alanine Aminotransferase (ALT/SGPT) 23 U/L (16-63) Alkaline Phosphatase 53 U/L (46-116) Total Protein 6.6 g/dL (6.4-8.2) Albumin 3.4 g/dL (3.4-5.0) Albumin/Globulin Ratio 1.1 (1.0-1.7) Medications Active Scripts Medications Dose Route/Sig Max Daily Dose Days Date Category Lasix (Furosemide) 40 Mg Tablet 1 Tab PO DAILY 03/18/21 Reported Lisinopril 2.5 Mg Tablet 1 Tab PO DAILY 03/18/21 Reported Klor-Con M20 (Potassium Chloride) 20 Meq Tab.er.prt 1 Tab PO DAILY 30 03/18/21 Reported Gabapentin (Gabapentin) 300 Mg Capsule 300 Mg PO 5XDAY 03/18/21 Reported Metoprolol Succinate ( Xl ) (Metoprolol Succinate) 25 Mg Tab.er.24h 1 Tab PO DAILY 03/18/21 Reported Comments CXR Impression: 1. Decreased patchy mid and bibasilar opacities. 2. Small right pleural effusion, unchanged. Impression . IMPRESSION: 1. Acute on chronic hypoxemic hypercapnic respiratory failure.--improved 2. Acute exacerbation of chronic obstructive pulmonary disease. 3. Acute on chronic cor pulmonale. 4. Obstructive sleep apnea, patient claims he is having some difficulty with his CPAP machine lately. 5. Polycythemia secondary to chronic hypoxemia. 6. Acute on chronic diastolic heart failure. 7. Coronary artery disease. 8. Morbid obesity. 9. Hypertension. 10. Tobacco dependent. 11. Alcoholism. Plan . Updated 03/[address] Hirsch I was unaware the patient does not have coverage, Okay to disc charge on oxygen supplementation Once patient obtains insurance coverage we could talk about noninvasive ventilation Updated 03/22/2021 Continue supplemental oxygen to keep sats above 90%, currently on 4 liters NC, baseline oxygen requirement is 3 liters NC BIPAP at HS and PRN, Follow cardiology recs- EF 55-60%, cont. diuresis CT reviewed no PE Monitor for alcohol withdrawal Continue steroids with taper, will change to p.o. today Continue ABX, on Rocephin and doxy Social work for DC planning for DC tuesday with Trilogy DVT/GI PPX: Roxananonikos D/W RN and PT PLAN: 03/21/2021 Continue supplemental oxygen to keep sats above 90%, currently on 4 liters NC, baseline oxygen requirement is 3 liters NC BIPAP at HS and PRN, Follow cardiology recs- EF 55-60%, cont. diuresis CT reviewed no PE Monitor for alcohol withdrawal Continue steroids with taper Continue ABX, on Rocephin Social work for DC planning for DC tuesday with Trilogy DVT/GI PPX D/W RN and PT DEO DUENAS MD Mar 23, 2021 10:07
[2021-03-23] MEDS ORDERED: PRED20TA PO (10:39)
--- NOTE | 2021-03-23 10:40 | DISCH ---
DISCHARGE INSTRUCTIONS Condition on Discharge Condition on Discharge: Stable Activity After Discharge Activity Instructions for Disc: Activity as tolerated, Avoid exertion, Avoid high altitudes Lifting Instructions after Dis: Do not lift >10 pounds Exercise Instruction after Dis: Progress as tolerated Driving Instructions after Dis: Do not drive today Weight Bearing Status after Di: No restrictions Diet after Discharge Diet after Discharge: Cardiac, Low Sodium 2 gm Diet Texture: Regular Liquid Texture: Thin Liquid Wound Incision Care Wound/Incision Care: Keep wound/cast CDI, Change dressing Follow-Up Follow up with: PCP within 2 weeks of discharge Follow Up With: Pulmonology as needed Treatment/Equipment after DC Discharge Respiratory Equipmen: Oxygen, CPAP FUNMI JENKINS MD Mar 23, 2021 10:40
[2021-03-23 11:00] VITALS: BP 150/84
--- NOTE | 2021-03-23 11:54 | NUR ---
SS following up with discharge planning. SS reviewed pt chart and discussed with pt RN. Pt is currently requiring oxygen at four liters nasal canula. Pt has home oxygen. Pt on IV Rocephin. Self pay. Per physician notes, pt needing Trilogy machine. SS met with pt and verified that he has no insurance. SS left voicemail for [facility]. Pt reported that they cannot afford a lot. SS phoned and faxed clinical and demographics to [facility], ; fax [phone]. Tati from [employer] checking with company to see if payment options or patient assistance is available. Tati to discuss with Dr. Tabares and will contact with more information.
[2021-03-23] MEDS: ENOXAPARIN 40 MG/0.4 ML SYRINGE. SQ SCH (12:00)
[2021-03-23] MEDS: cefTRIAXone IV Push 1 GM VIAL. IVP SCH (14:34)
[2021-03-23 15:00] VITALS: BP 160/87
--- NOTE | 2021-03-23 15:58 | NUR ---
Discharge: Teaching verbal and written. Reviewed medications, COPD, COPD exacerbation, Oxygen, SOA, follow-up, ect. Patient verbalized understanding. Prescription for Prednisone called into [facility]. IV removed without complications, catheter tip in-tact. All belongings with patient, Chiefs bag, cell phone, clothing.
--- NOTE | 2021-03-23 16:03 | NUR ---
Nursing: Prescription for Prednisone called into [facility]. Spoke with Wolf.
--- NOTE | 2021-03-23 20:36 | PDOC3 ---
[facility]-Discharge Summary Date of Admission: Date of Admission: Mar 18, 2021 Date of Discharge: Date of Discharge: Mar 23, 2021 Discharge Diagnosis: Discharge Diagnosis: 1. Acute on chronic hypoxemic hypercapnic respiratory failure.--improved 2. Acute exacerbation of chronic obstructive pulmonary disease. 3. Acute on chronic cor pulmonale. 4. Obstructive sleep apnea, patient claims he is having some difficulty with his CPAP machine lately. 5. Polycythemia secondary to chronic hypoxemia. 6. Acute on chronic diastolic heart failure. 7. Coronary artery disease. 8. Morbid obesity. 9. Hypertension. 10. Tobacco dependent. 11. Alcoholism. Hospital Course: Hospital Course: 60-year-old male with past medical history COPD on 3.5 - 4 L at baseline, diastolic CHF, CAD, who is a transfer from [facility] ER due to acute respiratory failure. EMS was contacted to his home as family found him in bed and difficult to arouse. EMS noted some cyanosis to his lips and nose and increase his oxygen to 5 L. He was placed on CPAP and initial O2 saturation was 63%. Upon arrival to [facility] O2 saturation increased to 95% with oxygenation. Patient does report a history of CHF and fluid overload. States he has had some conflicting reports from various physicians about his COPD diagnosis, but does admit to [id number] history of tobacco abuse. He reports associated cough. Labs at [facility] showed pH 7.27, PCO2 93; this improved to pH 7.35, PCO2 71, PO2 65. To continue treatment with BiPAP at [facility], repeat ABG showed pH 7.44, PCO2 52, PO2 65. States he has been vaccinated against COVID-19. Due to concerns of possible impending respiratory failure patient was transferred to [facility] for further medical management. By day of discharge, pt was clinically stable and ready for discharge. He was given breathing Tx and IV steroids. He will be discharged with prednisone taper and home O2. He will need to follow closely with a fashion merchandiser, but without coverage, this may be difficult. Rest of hospital course was uneventful Disposition: Disposition/Orders: D/C to Home Activity: Activity: Resume previous activity Diet: Diet: Cardiac Medications: Home Meds Active Scripts Prednisone (PREDNISONE) 20 Mg Tablet, 20 MG PO DAILY for copd exacerbation for 5 Days, #5 TAB Prov:FUNMI JENKINS MD 03/23/21 Reported Medications Furosemide (LASIX) 40 Mg Tablet, 1 TAB PO DAILY for CHF for 30 Days, #30 TAB 0 Refills 03/18/21 Lisinopril (LISINOPRIL) 2.5 Mg Tablet, 1 TAB PO DAILY for HTN, #30 TAB 5 Refills 03/18/21 Potassium Chloride (KLOR-CON M20) 20 Meq Tab.er.prt, 1 TAB PO DAILY for lasix for 30 Days, #30 TAB 0 Refills 03/18/21 Metoprolol Succinate (METOPROLOL SUCCINATE ( XL )) 25 Mg Tab.er.24h, 1 TAB PO DAILY for HTN, #30 TAB 5 Refills 03/18/21 Discontinued Reported Medications Gabapentin (GABAPENTIN ) 300 Mg Capsule, 300 MG PO 5XDAY for NEUROGENIC PAIN, CAP 03/18/21 Gabapentin (GABAPENTIN ) 300 Mg Capsule, 300 MG PO TID for neuropathy, CAP 09/27/18 Scheduled Furosemide (Lasix), 1 TAB PO DAILY, (Reported) Lisinopril (Lisinopril), 1 TAB PO DAILY, (Reported) Metoprolol Succinate (Metoprolol Succinate ( Xl )), 1 TAB PO DAILY, (Reported) Potassium Chloride (Klor-Con M20), 1 TAB PO DAILY, (Reported) Prednisone (Prednisone), 20 MG PO DAILY Discontinued Medications Gabapentin (Gabapentin ), 300 MG PO TID, (Reported) Gabapentin (Gabapentin ), 300 MG PO 5XDAY, (Reported) Total Time: Total Time: Total time spent was 32 minutes in preparing scripts, discharge planning with SW and RN, and preparing this discharge summary. Patient seen and examined on day of discharge. Justicifation of Admission Dx: Justifications for Admission: Justification of Admission Dx: Yes Acute COPD Exacerbation: Acute COPD Exacerbation FUNMI JENKINS MD Mar 23, 2021 20:36
== END 2021-03-23 15:55 | disposition home or self-care (01) | DRG 291 ==
LOC: 1 WEST ICU 21:11 → 2 NORTH 03-20 12:55
PROVIDERS: ADMIT Internal Medicine; ATTEND Internal Medicine
PROC: 5A09357 Assistance with Respiratory Ventilation, Less than 24 Consecutive Hours, Continuous Positive Airway Pressure (ICD-10-PCS; principal; 2021-03-18)
PROC: 5A09357 Assistance with Respiratory Ventilation, Less than 24 Consecutive Hours, Continuous Positive Airway Pressure (ICD-10-PCS; 2021-03-19)
DX: I11.0 Hypertensive heart disease with heart failure (principal); J96.22 Acute and chronic respiratory failure with hypercapnia; J96.21 Acute and chronic respiratory failure with hypoxia; J44.1 Chronic obstructive pulmonary disease with (acute) exacerbation; J98.11 Atelectasis; I50.33 Acute on chronic diastolic (congestive) heart failure; D75.1 Secondary polycythemia; E66.01 Morbid (severe) obesity due to excess calories; F10.20 Alcohol dependence, uncomplicated; F17.210 Nicotine dependence, cigarettes, uncomplicated; G47.33 Obstructive sleep apnea (adult) (pediatric); I25.10 Atherosclerotic heart disease of native coronary artery without angina pectoris; Z82.49 Family history of ischemic heart disease and other diseases of the circulatory system; Z85.820 Personal history of malignant melanoma of skin; Z96.653 Presence of artificial knee joint, bilateral; Z20.822 Contact with and (suspected) exposure to COVID-19; Z90.49 Acquired absence of other specified parts of digestive tract; I27.81 Cor pulmonale (chronic); Z68.39 Body mass index [BMI] 39.0-39.9, adult; Z71.6 Tobacco abuse counseling; Z79.899 Other long term (current) drug therapy
CPT/HCPCS: 36415; 36600; 71045; 80053; 82805; 85007; 85025; 93306; 94640; 94660; 94760; J0696; J1650; J2930; G0378